=== PATIENT | male | born 1980 | race Caucasian/White ===

== ENCOUNTER 2016-06-10 19:09 | Emergency (ER) | payer OTHER ==
[~2016-06-10] VITALS: Ht 162.6 cm; Wt 90.7 kg
[~2016-06-10 19:09] MED LIST: ALDACTONE25 M1 PO; AMOXICILLIN500 MG PO; BIAXIN500 MG PO; CEPHULAC10 GM/152 PO; CIPRO500 MG PO; CORGARD20 M1 PO; FLAGYL250 MG PO; FLORASTOR 33 MG1 CAP PO; FOLATE1 MG PO; LASIX20 MG PO; MULTI-DAY PLUS1 TA1 PO; NORCO 5/325 MG1 TAB PO; PROTONIX40 MG PO; VITAMIN B1100 M3 PO
[2016-06-10 19:14] VITALS: BP 100/56
--- NOTE | 2016-06-10 19:15 | NUR ---
Patient being evaluated by physician.
--- NOTE | 2016-06-10 19:20 | NUR ---
BIBA TO ER BED 5
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
[2016-06-10] MEDS ORDERED: KETOROLAC 60 MG/2 ML VIAL IM ONE (20:00)
--- NOTE | 2016-06-10 20:10 | NUR ---
PT TO CT VIA GURAMBROSE IN STABLE CONDITION.
--- NOTE | 2016-06-10 20:15 | NUR ---
RETURN FROM CT VIA WHEELCHAIR IN STABLE CONDITION
[2016-06-10] MEDS ORDERED: HYDROcodone/APAP 7.5/325 MG 1 TAB PO ONE (20:45)
--- NOTE | 2016-06-10 21:06 | NUR ---
Patient discharged with v/s stable. Written and verbal after care instructions given and explained. Patient alert, oriented and verbalized understanding of instructions. Ambulatory with steady gait. All questions addressed prior to discharge. ID band removed. Patient advised to follow up with PMD. Rx of NORCO AND IBUPROFEN given. Patient educated on indication of medication including possible reaction and side effects. Opportunity to ask questions provided and answered.
[2016-06-10 21:07] VITALS: BP 102/55
== END 2016-06-10 21:07 | disposition home or self-care (01) ==
LOC: MED 19:09
DX: S42.012A Anterior displaced fracture of sternal end of left clavicle, initial encounter for closed fracture (principal); S70.12XA Contusion of left thigh, initial encounter; K21.9 Gastro-esophageal reflux disease without esophagitis; V13.4XXA Pedal cycle driver injured in collision with car, pick-up truck or van in traffic accident, initial encounter; Y93.89 Activity, other specified; Y92.89 Other specified places as the place of occurrence of the external cause; Y99.8 Other external cause status
CPT/HCPCS: 73030; 96372; 99284; J1885

== ENCOUNTER 2016-06-14 23:39 | Emergency (ER) | payer OTHER ==
[~2016-06-14] VITALS: Ht 162.6 cm; Wt 90.7 kg
[2016-06-14 23:48] VITALS: BP 155/83
--- NOTE | 2016-06-15 01:25 | NUR ---
TO ER BED 8
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
--- NOTE | 2016-06-15 01:45 | NUR ---
Patient being evaluated by physician at bedside.
[2016-06-15] MEDS ORDERED: HYDROcodone/APAP 5/325 MG 1 TAB TAB PO ONE (01:50)
[2016-06-15 03:49] VITALS: BP 155/83
--- NOTE | 2016-06-15 03:50 | NUR ---
Patient discharged with v/s stable. Written and verbal after care instructions given and explained. Patient alert, oriented and verbalized understanding of instructions. Ambulatory with steady gait. All questions addressed prior to discharge. ID band removed. Patient advised to follow up with PMD. Rx of NORCO AND ROBAXIN given. Patient educated on indication of medication including possible reaction and side effects. Opportunity to ask questions provided and answered.
== END 2016-06-15 03:49 | disposition home or self-care (01) ==
LOC: MED 23:39
DX: S42.002A Fracture of unspecified part of left clavicle, initial encounter for closed fracture (principal); S70.12XA Contusion of left thigh, initial encounter; R07.81 Pleurodynia; K74.60 Unspecified cirrhosis of liver; K21.9 Gastro-esophageal reflux disease without esophagitis; V89.2XXA Person injured in unspecified motor-vehicle accident, traffic, initial encounter; Y93.55 Activity, bike riding; Y92.89 Other specified places as the place of occurrence of the external cause; Y99.8 Other external cause status
CPT/HCPCS: 71020; 73552; 93971; 99284; Q0092

== ENCOUNTER 2016-06-18 20:42 | Inpatient (IN) | payer OTHER ==
[~2016-06-18] VITALS: Ht 162.6 cm; Wt 93.0 kg
[2016-06-18 21:37] VITALS: BP 156/79
--- NOTE | 2016-06-18 22:24 | NUR ---
PT TAKEN TO BED 3
--- NOTE | 2016-06-18 22:25 | NUR ---
PATIENT PRESENTS TO ED WITH C.O. RT TO MID ABDOMINAL PAIN AND NAUSEA FOR 2 DAYS. DENIES N/V/D AT THIS TIME. SKIN IS PINK/WARM/DRY; AAOX4 WITH EVEN AND STEADY GAIT; LUNGS CLEAR BL; HR EVEN AND REGULAR; PT DENIES ANY FEVER, CP, SOB, OR COUGH AT THIS TIME; PATIENT STATES PAIN OF 8/10 AT THIS TIME; VSS; PATIENT POSITIONED FOR COMFORT; HOB ELEVATED; BEDRAILS UP X2; BED DOWN. ER MD MADE AWARE OF PT STATUS.
--- NOTE | 2016-06-18 22:59 | NUR ---
PT TAKEN TO XRAY
[2016-06-18] MEDS ORDERED: fentaNYL 0.05 MG/ML VIAL IM ONE (23:05)
--- NOTE | 2016-06-18 23:25 | NUR ---
Patient being evaluated by physician TACHO at bedside.
--- NOTE | 2016-06-18 23:37 | NUR ---
Ultrasound at bedside.
[2016-06-19] MEDS ORDERED: SODIUM CHLORIDE FLUSH 10 ML SYR IVF ONE (00:05)
[2016-06-19] MEDS ORDERED: SODIUM POLYSTYRENE 15 GM/60 ML UDBTL PO ONE (00:05)
[2016-06-19] MEDS ORDERED: DEXTROSE 50% 50 ML SYR IVP ONE (00:05)
[2016-06-19] MEDS ORDERED: FUROSEMIDE 40 MG/4 ML VIAL IVP ONE (00:05)
[2016-06-19] MEDS ORDERED: INSULIN HUMAN REGULAR 100 UNITS/ML 10 ML VIAL IVP ONE (00:05)
[2016-06-19] MEDS ORDERED: LORazepam 2 MG/ML VIAL IVP PRN ×2 (01:50→11:05)
[2016-06-19] MEDS ORDERED: ONDANSETRON 4 MG/2 ML VIAL IVP PRN (01:50)
--- NOTE | 2016-06-19 01:57 | NUR ---
PT TO TRANSFER TO TELE IN ROOM 111B, RECEIVING NURSE IS SHAILESH GRECO. REPORT GIVEN.
--- NOTE | 2016-06-19 02:05 | NUR ---
Pt transferred to Tele via . VSS.
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
[2016-06-19 02:29] VITALS: BP 124/69
--- NOTE | 2016-06-19 03:00 | NUR ---
PT. WENT RESTROOM TO HAVE A BOWEL MOVEMENT. BILATERAL SEQUENTIALS BACK IN PLACE WHEN PT. DONE. EXPLAINED REASON FOR IT. "OK" TELEMETRY MONITORING.
[2016-06-19 04:23] VITALS: BP 118/57
--- NOTE | 2016-06-19 04:48 | NUR ---
SLEEPING. ABLE TO GO RESTROOM BY HIMSELF. NO COMPLAINTS DONE. TELEMETRY MONITORING.
[2016-06-19] MEDS: MORPHINE SULFATE 2 MG/ML SYR IVP PRN ×4 (05:19→20:48)
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
--- NOTE | 2016-06-19 07:18 | NUR ---
ENDORSED TO THE NEXT RN FOR CONTINUITY OF CARE. AWAKE AND ALERT. NO COMPLAINTS DONE.
--- NOTE | 2016-06-19 07:19 | NUR ---
RECEIVED REPORT FROM CAFETERIA MANAGER RN. PT IS RESTING WITH EYES CLOSED, A/O X 4, AMBULATORY. R HAND 22G SL IV. NO S/S OF ACUTE CARDIAC/RESPIRATORY DISTRESS OR DISCOMFORT. HEMATOMA TO L LEG AND TORSO. LBM ON 06/19/16. SAFETY MEASURES IN PLACE, CALL LIGHT WITHIN REACH. WILL CONTINUE PLAN OF CARE AND CONTINUE TO MONITOR.
[2016-06-19 07:44] VITALS: BP 110/57
--- NOTE | 2016-06-19 08:30 | NUR ---
PATIENT HAS BEEN SCREENED AND CATEGORIZED HIGH NUTRITION RISK. PATIENT WILL BE SEEN WITHIN 1-2 DAYS OF ADMISSION. 06/19/16-06/20/[address]
--- NOTE | 2016-06-19 09:16 | NUR ---
PT SLEEPING. NO S/S OF ACUTE DISTRESS OR DISCOMFORT. CALL LIGHT WITHIN REACH. WILL CONTINUE TO MONITOR.
--- NOTE | 2016-06-19 09:25 | NUR ---
FAXED INITIAL REVIEW TO [facility] [phone] PHONE [phone]
[2016-06-19] MEDS ORDERED: FUROSEMIDE 40 MG/4 ML VIAL IVP SCH ×2 (11:15→11:30)
[2016-06-19 12:00] VITALS: BP 130/69
--- NOTE | 2016-06-19 13:04 | NUR ---
OLD IV RIGHT HAND 22G SL NOT PATENT, IV REMOVED AND INTACT. NEW IV TO LAC 22G SL, INTACT AND PATENT. ADMINISTERED PAIN MEDICATION, PT TOLERATED WELL AND STATES REDUCED PAIN. FAMILY AT BEDSIDE. PT AWAKE, EATING LUNCH. NO S/S OF ACUTE DISTRESS OR DISCOMFORT. CALL LIGHT WITHIN REACH. WILL CONTINUE TO MONITOR.
--- NOTE | 2016-06-19 15:10 | NUR ---
PT IS RESTING WITH EYES CLOSED. NO S/S OF ACUTE DISTRESS OR DISCOMFORT. CALL LIGHT WITHIN REACH. WILL CONTINUE TO MONITOR.
[2016-06-19 16:00] VITALS: BP 114/76
[2016-06-19] MEDS: FUROSEMIDE 40 MG/4 ML VIAL IVP SCH (16:13)
--- NOTE | 2016-06-19 17:00 | NUR ---
PT IS SLEEPING. NO S/S OF ACUTE DISTRESS OR DISCOMFORT. CALL LIGHT WITHIN REACH. WILL CONTINUE TO MONITOR.
--- NOTE | 2016-06-19 19:17 | NUR ---
ENDORSED TO SOLAR MAINTENANCE TECHNICIAN RN. PT IS RESTING WITH EYES CLOSED. NO S/S OF ACUTE DISTRESS OR DISCOMFORT. PT IS STABLE. CALL LIGHT WITHIN REACH.
--- NOTE | 2016-06-19 19:25 | NUR ---
RECEIVED REPORT FROM DAY NURSEMIKEY. PATIENT RESTING IN BED, WATCHING TELEVISION. NO RESPIRATORY DISTRESS, SOB, OR DISCOMFORT. INITIAL ASSESSMENT AND BODY CHECK DONE. PATIENT IS AOX4, SKIN IS INTACT, IV ACCESS TO LEFT AC 22G, PATENT. HEMATOMAS NOTED TO LEFT LEG, BACK, AND UPPER CHEST. DISCUSSED PLAN OF CARE, MEDICATION REGIMENT, AND PAIN MANAGEMENT WITH PATIENT. PATIENT VERBALIZED UNDERSTANDING. PLACED PATIENT ON SAFETY PRECAUTIONS. CALL LIGHT LEFT WITHIN REACH, WILL CONTINUE TO MONITOR.
[2016-06-19 20:00] VITALS: BP 113/65
[2016-06-19] MEDS: SACCHAROMYCES 250 MG CAP PO SCH (20:48)
[2016-06-19] MEDS: LACTULOSE 20 GM/30 ML UDC PO SCH (20:48)
--- NOTE | 2016-06-19 22:08 | NUR ---
PATIENT RESTING IN BED, WATCHING TELEVISION. NO RESPIRATORY DISTRESS, SOB, OR DISCOMFORT. CALL LIGHT LEFT WITHIN REACH, WILL CONTINUE TO MONITOR.
[2016-06-20] VITALS: BP 103/63
--- NOTE | 2016-06-20 01:01 | NUR ---
PATIENT USING RESTROOM AT THIS TIME. STATES BEING OKAY. WILL CONTINUE TO MONITOR.
[2016-06-20] MEDS: MORPHINE SULFATE 2 MG/ML SYR IVP PRN ×3 (03:03→13:25)
--- NOTE | 2016-06-20 03:08 | NUR ---
PATIENT ASLEEP. NO RESPIRATORY DISTRESS, SOB, OR DISCOMFORT. CALL LIGHT LEFT WITHIN REACH, WILL CONTINUE TO MONITOR.
[2016-06-20 04:00] VITALS: BP 112/67
--- NOTE | 2016-06-20 06:07 | NUR ---
PATIENT SLEEPING. NO RESPIRATORY DISTRESS, SOB, OR DISCOMFORT. CALL LIGHT LEFT WITHIN REACH, WILL CONTINUE TO MONITOR.
--- NOTE | 2016-06-20 07:05 | NUR ---
REPORT GIVEN TO DAY NURSE, MIKEY. PATIENT RESTING IN BED, STABLE. NO RESPIRATORY DISTRESS, SOB, OR DISCOMFORT. ALL NEEDS ATTENDED TO DURING SHIFT, CALL LIGHT LEFT WITHIN REACH.
--- NOTE | 2016-06-20 07:06 | NUR ---
RECEIVED REPORT FROM POWERTRAIN DESIGN ENGINEER RN. PT IS AWAKE, A/O X 4, AMBULATORY. LAC IV INTACT AND PATENT. NO S/S OF ACUTE DISTRESS OR DISCOMFORT. LBM 06/19/16. SAFETY MEASURES IN PLACE, CALL LIGHT WITHIN REACH. WILL CONTINUE PLAN OF CARE, WILL CONTINUE TO MONITOR.
[2016-06-20 08:00] VITALS: BP 129/71
[2016-06-20] MEDS: LACTULOSE 20 GM/30 ML UDC PO SCH (08:54)
[2016-06-20] MEDS: FUROSEMIDE 40 MG/4 ML VIAL IVP SCH (08:54)
[2016-06-20] MEDS: SACCHAROMYCES 250 MG CAP PO SCH (08:54)
[2016-06-20] MEDS ORDERED: THIAMINE 100 MG TAB PO SCH (09:00)
[2016-06-20] MEDS ORDERED: NADOLOL 20 MG TAB PO SCH (09:00)
[2016-06-20] MEDS ORDERED: FOLIC ACID 1 MG TAB PO SCH (09:00)
--- NOTE | 2016-06-20 10:19 | NUR ---
PT RESTING WITH EYES CLOSED. NO S/S OF ACUTE DISTRESS OR DISCOMFORT. CALL LIGHT WITHIN REACH. WILL CONTINUE TO MONITOR.
--- NOTE | 2016-06-20 11:16 | NUR ---
06/20/16 RD INITIAL ASSESSMENT COMPLETED PLEASE REFER TO NUTRITION ASSESSMENT UNDER CARE ACTIVITY FOR ESTIMATED NUTRITIONAL NEEDS. RD RECOMMENDATIONS: 1. CONTINUE REGULAR DIET TOLERATED PER MD --PT MEETING >100% OF ESTIMATED KCAL AND PROTEIN NEEDS 3. RD WILL F/U 5-7 DAYS; LOW RISK. VEDA MEJIA RD
[2016-06-20 12:00] VITALS: BP 114/62
--- NOTE | 2016-06-20 12:42 | NUR ---
CM NOTE CONCURRENT REVIEW SENT TO [facility] FAX# [phone] PH# [phone] [facility] [id number]
--- NOTE | 2016-06-20 14:30 | NUR ---
DISCHARGE INSTRUCTIONS PROVIDED, PT VERBALIZED UNDERSTANDING. PT SIGNED DISCHARGE PAPERWORK, PROVIDED A COPY. REMOVED ARM BANDS, REMOVED TELE MONITOR, IV REMOVED AND INTACT. PT HAS NO S/S OF ACUTE DISTRESS OR DISCOMFORT. PT IN STABLE CONDITION. ESCORT PT TO FRONT LOBBY TO BE PICKED UP BY FATHER.
== END 2016-06-20 14:30 | disposition home or self-care (01) | DRG 280 ==
LOC: MED 20:42 → MTU 06-19 01:45
PROVIDERS: ADMIT Hospitalist; ATTEND Hospitalist
DX: K70.31 Alcoholic cirrhosis of liver with ascites (principal); E87.1 Hypo-osmolality and hyponatremia; I85.00 Esophageal varices without bleeding; E87.5 Hyperkalemia; I10 Essential (primary) hypertension; F10.21 Alcohol dependence, in remission; K21.9 Gastro-esophageal reflux disease without esophagitis; Z79.899 Other long term (current) drug therapy

== ENCOUNTER 2016-06-25 15:25 | Emergency (ER) | payer OTHER ==
[~2016-06-25] VITALS: Ht 162.6 cm; Wt 93.0 kg
[2016-06-25 15:46] VITALS: BP 125/99
--- NOTE | 2016-06-25 17:17 | NUR ---
PT TO BED 1 AT THIS TIME
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
[2016-06-25] MEDS ORDERED: ALUMINUM HYD/MAG/SIMETHICONE 30 ML, BELLADONNA/PHENOBARBITAL 10 ML, LIDOCAINE VISCOUS 2... PO ONE (17:25)
--- NOTE | 2016-06-25 17:36 | NUR ---
LAB AT BEDSIDE
--- NOTE | 2016-06-25 18:03 | NUR ---
PT TAKEN TO XRAY VIA W/C ACCOMPANIED BY [employer] AT THIS TIME.
[2016-06-25] MEDS ORDERED: FUROSEMIDE 40 MG TAB PO ONE (18:30)
[2016-06-25] MEDS ORDERED: SODIUM POLYSTYRENE 15 GM/60 ML UDBTL PO ONE (18:30)
[2016-06-25 18:59] VITALS: BP 128/71
--- NOTE | 2016-06-25 18:59 | NUR ---
Patient discharged with v/s stable. Written and verbal after care instructions given and explained. Patient alert, oriented and verbalized understanding of instructions. Ambulatory with steady gait. All questions addressed prior to discharge. ID band removed. Patient advised to follow up with PMD. Rx of LASIX 40MG & LACTULOSE 10G/15ML given. Patient educated on indication of medication including possible reaction and side effects. Opportunity to ask questions provided and answered.
== END 2016-06-25 18:59 | disposition home or self-care (01) ==
LOC: MED 15:25
DX: K74.60 Unspecified cirrhosis of liver (principal); E87.5 Hyperkalemia; E87.1 Hypo-osmolality and hyponatremia; R74.0 Nonspecific elevation of levels of transaminase and lactic acid dehydrogenase [LDH]; K21.9 Gastro-esophageal reflux disease without esophagitis; I10 Essential (primary) hypertension

== ENCOUNTER 2016-06-27 07:47 | Emergency (ER) | payer OTHER ==
[~2016-06-27] VITALS: Ht 162.6 cm; Wt 93.0 kg
[2016-06-27 07:57] VITALS: BP 127/65
--- NOTE | 2016-06-27 08:05 | NUR ---
PT AMBULATED TO BED 3 AT THIS TIME.
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
[2016-06-27] MEDS ORDERED: NACL 0.9% 500 ML IV ONE (08:18)
[2016-06-27] MEDS ORDERED: DICYCLOMINE 20 MG/2 ML VIAL IM ONE (08:20)
--- NOTE | 2016-06-27 08:35 | NUR ---
WITH LAB AT BEDSIDE.
--- NOTE | 2016-06-27 08:45 | NUR ---
PT AMB TO RESTROOM.
--- NOTE | 2016-06-27 08:53 | NUR ---
PT ON MONITOR. HR 95. ER MADE AWARE. ORDER TO STOP IVF.
[2016-06-27] MEDS ORDERED: ALUMINUM HYD/MAG/SIMETHICONE 30 ML, BELLADONNA/PHENOBARBITAL 10 ML, LIDOCAINE VISCOUS 2... PO ONE (09:15)
[2016-06-27 09:41] VITALS: BP 105/65
--- NOTE | 2016-06-27 09:41 | NUR ---
Patient discharged with v/s stable. Written and verbal after care instructions given and explained. Patient alert, oriented and verbalized understanding of instructions. Ambulatory with steady gait. All questions addressed prior to discharge. ID band removed. Patient advised to follow up with PMD. Rx of CIPROFLOXACIN, BENTYL AND FLAGYL given. Patient educated on indication of medication including possible reaction and side effects. Opportunity to ask questions provided and answered.
== END 2016-06-27 09:41 | disposition home or self-care (01) ==
LOC: MED 07:47
DX: K74.60 Unspecified cirrhosis of liver (principal); R19.7 Diarrhea, unspecified; R60.0 Localized edema; I10 Essential (primary) hypertension; K21.9 Gastro-esophageal reflux disease without esophagitis; Z79.899 Other long term (current) drug therapy
CPT/HCPCS: 36415; 80053; 83690; 85025; 96374; 99284; J0500; J7030

== ENCOUNTER 2016-06-29 21:37 | Inpatient (IN) | payer OTHER ==
[~2016-06-29] VITALS: Ht 162.6 cm; Wt 101.2 kg
[2016-06-29 21:48] VITALS: BP 136/71
[2016-06-29] MEDS ORDERED: NACL 0.9% 1,000 ML IV ONE (23:45)
--- NOTE | 2016-06-30 | NUR ---
PATIENT TO BED 8.
--- NOTE | 2016-06-30 00:05 | NUR ---
PT IS A 35/M BIB MOTHER TO ED WITH C/O ABD PAIN X2DAYS WITH N/V/D, HEADACHE AND BONE PAIN. HX CIRRHOSIS AND HERNIA. SKIN IS /WARM/DRY; AAOX4 WITH EVEN AND STEADY GAIT; LUNGS CLEAR BL; HR EVEN AND REGULAR; PT DENIES ANY FEVER, OR COUGH AT THIS TIME; PATIENT STATES PAIN OF 10/10 AT THIS TIME; VSS; PATIENT POSITIONED FOR COMFORT; HOB ELEVATED; BEDRAILS UP X2; BED DOWN. ER MD MADE AWARE OF PT STATUS.
--- NOTE | 2016-06-30 00:10 | NUR ---
Patient being evaluated by physician at bedside.
[2016-06-30] MEDS ORDERED: MORPHINE SULFATE 4 MG/ML SYR IVP ONE (00:20)
[2016-06-30] MEDS: DEXT 5% /NACL 0.9% 1,000 ML IV SCH ×3 (00:40→20:19)
[2016-06-30] MEDS ORDERED: ONDANSETRON 4 MG/2 ML VIAL IVP PRN (00:40)
--- NOTE | 2016-06-30 01:25 | NUR ---
Patient will be admitted to care of . Admited to TELEMETRY. Will go to room 106B. Belongings list completed. Report to FANNIE GUZMAN.
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
[2016-06-30 01:29] VITALS: BP 118/66
[2016-06-30 04:00] VITALS: BP 120/67
--- NOTE | 2016-06-30 04:05 | NUR ---
PT VSS. NO DISTRESS NOTED. CALL LIGHT WITHIN REACH.
[2016-06-30] MEDS: MORPHINE SULFATE 2 MG/ML SYR IVP PRN (05:38)
--- NOTE | 2016-06-30 05:38 | NUR ---
PROVIDED PT W/ PAIN MEDICATION SEE eMAR. PT REMAINS STABLE. NO ACUTE DISTRESS. CALL LIGHT WITHIN EASY REACH.
--- NOTE | 2016-06-30 07:26 | NUR ---
ENDORSED PT TO EMILIA RN IN STABLE CONDITION AT BEDSIDE FOR CONTINUITY OF CARE.
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
[2016-06-30 08:00] VITALS: BP 115/63
[2016-06-30] MEDS: THIAMINE 100 MG TAB PO SCH (08:33)
[2016-06-30] MEDS: LACTULOSE 20 GM/30 ML UDC PO SCH ×2 (08:33→20:22)
[2016-06-30] MEDS: MULTIVITAMIN 1 TAB PO SCH (08:33)
[2016-06-30] MEDS: FOLIC ACID 1 MG TAB PO SCH (08:34)
--- NOTE | 2016-06-30 08:41 | NUR ---
MORNING DUE MEDICATIONS AND TEACHING GIVEN, PATIENT TOLERATED WELL. NO SIGN OF DISTRESS NOTED. PATIENT DENIED ANY PAIN OR DISCOMFORT. ALL NEEDS ARE MET. CALL LIGHT WITHIN REACH. WILL CONTINUE TO MONITOR.
[2016-06-30] MEDS: NADOLOL 20 MG TAB PO SCH (08:44)
[2016-06-30 11:47] VITALS: BP 100/60
--- NOTE | 2016-06-30 12:01 | NUR ---
PATIENT RESTING WELL IN BED. NO SIGN OF DISTRESS NOTED. DENIED ANY N/V/D. DENIED ANY PAIN OR DISCOMFORT AT THIS TIME. ALL NEEDS ARE MET. CALL LIGHT WITHIN REACH. WILL CONTINUE TO MONITOR.
--- NOTE | 2016-06-30 14:53 | NUR ---
REACH BACK TO DR NERI WOOD RESULT IMPRESSION, RECEIVED TELEPHONE ORDER FOR NG TUBE LOW INTERMITTENT SUCTION AND DR BRITTON CONSULT FOR PATIENT. WILL FOLLOW THROUGH MD ORDERS.
--- NOTE | 2016-06-30 15:08 | NUR ---
CALLED DR BRITTON AND LEFT MESSAGE REGARDING PATIENT'S CONSULT FOR PARTIAL SMALL BOWEL OBSTRUCTION.
[2016-06-30 15:34] VITALS: BP 107/61
--- NOTE | 2016-06-30 15:42 | NUR ---
NG TUBE INSERTED TP LEFT NARES, PATIENT TOLERATED WELL. NOTED CLEAR LIGHT YELLOW FLUID COMING OUT FROM NG TUBE. HEAD OF BED ELEVATED, INSTRUCTED PATIENT TO REMAIN NPO, PATIENT VERBALIZED UNDERSTANDING. CALL LIGHT WITHIN REACH. WILL CONTINUE TO MONITOR. AWAITING FOR CHEST XRAY TO CONFIRM PLACEMENT.
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
--- NOTE | 2016-06-30 18:00 | NUR ---
ASSISTED PATIENT TO BATHROOM AND BACK TO BED SAFELY, PATIENT HAS 1 LIQUID BOWEL MOVEMENT. RESUMED LOW INTERMITTENT SUCTION FOR NG TUBE. PATIENT TOLERATED WELL. WILL CONTINUE TO MONITOR.
--- NOTE | 2016-06-30 19:08 | NUR ---
ENDORSED PATIENT CURRENT PLAN OF CARE TO NIGHT NURSE KAYA WADE. PATIENT RESTING WELL IN BED. NO SIGN OF DISTRESS NOTED.
--- NOTE | 2016-06-30 19:10 | NUR ---
PT IS CURRENTLY AWAKE ALERT ORIENTED RESTING IN BED PT DENIES PAIN AND DISCOMFORT HAS NGTUBE IN PLACE CONNECTED TO SUCTION.IV SITE IS OCCLUDED WILL RESTART A NEW IV.PT CONTINUES TO WEAR THE SCD'S TO BOTH LOWER EXTREMITY FOR DVT PROPHALAXIS. CALL LIGHT WITHIN REACH WILL CONTINUE TO MONITOR.
[2016-06-30 20:00] VITALS: BP 92/55
--- NOTE | 2016-06-30 20:00 | NUR ---
Patient's Plan of Care was discussed and reviewed with CUT PRESSMAN: SHERI Herring
--- NOTE | 2016-06-30 22:10 | NUR ---
PT IS CURRENTLY AWAKE RESTING IN BED TALKING ON THE PHONE,IVF TO RT FA G#24 CURRENTLY INFUSING WELL WILL CONTINUE TO MONITOR.PT ASSISTED TO THE BATHROOM NEEDED.CALL LIGHT WITHIN REACH.
[2016-07-01] VITALS: BP 112/53
--- NOTE | 2016-07-01 00:10 | NUR ---
PT IS CURRENTLY RESTING IN BED SLEEPING NGT IN PLACE CONNECTED TO SUCTION,PT HAS NO COMPLAINS OF PAIN AT THIS TIME.IVF INFUSING WELL,SCD'S IN PLACE TO BOTH LOWER EXTREMITIES.PT IS ABLE TO MAKE NEEDS KNOWN USES THE CALL LIGHT.WILL CONTINUE TO MONITOR.
--- NOTE | 2016-07-01 02:50 | NUR ---
PT IS CURRENTLY AWAKE ON AND OFF ASSISTED TO THE BATHROOM AND BACK TO BED NEEDS MET WILL CONTINUE TO MONITOR.
[2016-07-01 04:30] VITALS: BP 109/57
--- NOTE | 2016-07-01 04:30 | NUR ---
PT IS CURRENTLY RESTING IN BED CONTINUES TO HAVE NGTUBE IN PLACE TO SUCTION,PT ASSISTED TO THE BATHROOM AND BACK TO BED.IVF INFUSING WELL IV SITE PATENT.WILL CONTINUE TO MONITOR THE PATIENT.CALL LIGHT WITHIN REACH.
[2016-07-01] MEDS: MORPHINE SULFATE 2 MG/ML SYR IVP PRN ×2 (05:05→14:20)
--- NOTE | 2016-07-01 06:51 | NUR ---
PT IS SLEEPING ON AND OFF CONTINUE TO HAVE NGT TO SUCTION AND THERE IS ABOUT 510ML OF DRAINAGE NOTED INSIDE THE SUCTION CONTAINER.PT DENIES PAIN, NO COMPLAINS OF N/V AT THIS TIME AND CONTINUES TO HAVE THE SCD'S TO BLE IN PLACE.PT HAS CALL LIGHT AND IS ABLE TO MAKE NEEDS KNOWN.
--- NOTE | 2016-07-01 07:24 | NUR ---
PT STABLE REPORT ENDORSED TO KAYA DODSON AT BEDSIDE.
--- NOTE | 2016-07-01 07:24 | NUR ---
ASSUMED CONTINUITY OF CARE. NO SIGNS AND SYMPTOMS OF ACUTE DISTRESS NOTED. INITIAL ASSESSMENT DONE. HOB ELEVATED. KEEP COMFORTABLE ON BED. EXPLAINED DIAGNOSIS, PLAN OF CARE, PAIN MANAGEMENT TEACHING, USE OF CALL LIGHT/BED/TV/BATHROOM. VERBALIZED UNDERSTANDING. CALL LIGHT WITHIN REACH.
[2016-07-01 08:00] VITALS: BP 103/52
--- NOTE | 2016-07-01 08:00 | NUR ---
Patient's Plan of Care was discussed and reviewed with SOLAR PANEL TECHNICIAN: MEGAN DODSON
--- NOTE | 2016-07-01 08:50 | NUR ---
WOUND CARE EVALUATION NOTES: REASON FOR EVALUATION: DRY WOUND LEFT THIGH COMPLETE SKIN ASSESSMENT DONE ON THIS 35 Y/O MALE PATIENT FROM HOME TO [facility], WITH INITIAL DIAGNOSIS OF SMALL BOWEL OBSTRUCTION. PAST MEDICAL HISTORY INCLUDE LIVER CIRRHOSIS, PORTAL HYPERTENSION, UMBILICAL HERNIA AND ALCOHOL ABUSE. ALL ABOVE INFORMATION WAS OBTAINED FROM THE ADMISSION. LABS INCLUDE WBC 5.0, H/H 8.4/25.0, GLUCOSE 67 AND ALBUMIN 1.5. CURRENT MEDS INCLUDE THIAMINE, MULTIVITAMINS/ASCORBIC ACID AND MORPHINE. PATIENT IS ALERT AND ORIENTED TO PERSON, PLACE, DATE AND TIME. ABLE TO MAKE HIS NEEDS KNOWN. ABLE TO FOLLOW SIMPLE COMMANDS. SKIN WARM TO TOUCH WNL, TOENAILS ARE SLIGHTLY THICKENED, NO EDEMA, WITH HAIR GROWTH AND +3 BILATERAL PEDAL PULSES. URINE AND BOWEL CONTINENT, ABLE TO AMBULATE TO THE RESTROOM CLAIMED. ABLE TO TURN SELF WITHOUT ASSISTANCE. INITIAL PLAN OF CARE AND PRESSURE PREVENTIVE MEASURES DISCUSSED, ABLE TO VERBALIZE UNDERSTANDING. INTEGUMENTARY: LEFT THIGH - ABRASION - 100% BROWN SCAB. PW DRY AND SOME SKIN ARE PEELING OFF RECOMMENDATIONS: -PAINT LEFT THIGH WITH SKIN PREP WIPES BIDWC AND LEAVE OPEN TO AIR -TURN AND REPOSITION PATIENT Q2H -ASSESS AND MONITOR SKIN CONDITION DURING POSITION CHANGE, PLEASE PAY PARTICULAR ATTENTION TO SACRALCOCCYX, ELBOWS AND HEELS -OFFLOAD BILATERAL HEELS BY PLACING PILLOWS UNDER CALVES AT ALL TIMES, UNLESS OTHERWISE CONTRAINDICATED. -KEEP SKIN CLEAN AND DRY AT ALL TIMES. RECOMMENDATIONS DISCUSSED WITH PRIMARY RN. NO FOLLOW UP NEEDED AT THIS TIME. PLEASE CONTACT [facility] FOR ANY CONCERNS, QUESTIONS AND CHANGES IN WOUND CONDITION.
[2016-07-01] MEDS: NADOLOL 20 MG TAB PO SCH (09:00)
[2016-07-01] MEDS: THIAMINE 100 MG TAB PO SCH (09:08)
[2016-07-01] MEDS: LACTULOSE 20 GM/30 ML UDC PO SCH ×2 (09:08→21:24)
[2016-07-01] MEDS: FOLIC ACID 1 MG TAB PO SCH (09:09)
[2016-07-01] MEDS: MULTIVITAMIN 1 TAB PO SCH (09:09)
--- NOTE | 2016-07-01 09:21 | NUR ---
PATIENT HAS BEEN SCREENED AND CATEGORIZED HIGH NUTRITION RISK. PATIENT WILL BE SEEN WITHIN 1-2 DAYS OF ADMISSION. 06/30/16-07/01/[address]
[2016-07-01 12:00] VITALS: BP 116/61
--- NOTE | 2016-07-01 12:23 | NUR ---
FAXED INITIAL REVIEW TO [facility] [phone] PHONE October FAXED INITIAL REVIEW TO [facility] [phone] PHONE [phone]
--- NOTE | 2016-07-01 13:30 | NUR ---
DR. BRITTON CAME, SEEN PT., AND REVIEWED PT. CHART.
[2016-07-01] MEDS: DEXT 5% /NACL 0.9% 1,000 ML IV SCH (14:10)
--- NOTE | 2016-07-01 14:40 | NUR ---
07/01/16 RD INITIAL ASSESSMENT COMPLETED PLEASE REFER TO NUTRITION ASSESSMENT UNDER CARE ACTIVITY FOR ESTIMATED NUTRITIONAL NEEDS. RD RECOMMENDATIONS: 1. CONTINUE NPO MEDICALLY APPROPRIATE 2. WHEN MEDICALLY NECESSARY CONSIDER ADVANCE DIET TOLERATED TO REGULAR, MECHANICAL SOFT 3. RD WILL F/U 3-5 DAYS; MODERATE RISK. VEDA MEJIA RD
[2016-07-01 16:00] VITALS: BP 113/64
--- NOTE | 2016-07-01 16:00 | NUR ---
VITALS SIGNS STABLE. NO C/O PAIN. WILL MONITOR.
--- NOTE | 2016-07-01 19:17 | NUR ---
ENDORSED TO SHAILESH THOMPSON. IVF INFUSING WELL. IN STABLE CONDITION.
--- NOTE | 2016-07-01 19:25 | NUR ---
RECEIVED FROM AM RN IN BED AWAKE AND WITH FAMILY MEMBERS VISITING. ORIENTED X 4. ROM X 4. CLEAR SPEECH. CARE PLANS FOR THE NIGHT DISCUSSED WITH HIM. CALL LIGHT WITH IN REACH. DX. SBO. SEEN BY SURGEON PER AM NURSE. AFEBRILE. IVF SITE TO RFA #24 INTACT AND WITH GOOD BLOOD RETURN.
[2016-07-01 20:00] VITALS: BP 103/60
--- NOTE | 2016-07-01 22:00 | NUR ---
PT. STILL AWAKE AT THIS TIME. ENCOURAGED TO GO TRY HAVE BM AND TO CALL FOR ANY HELP HE MAY NEED. A/O X 4. "OK" NGT OUTPUT STILL COFFEE GROUND. PER CHARGE NURSE AND AM RN MD AWARE OF IT. CALL LIGHT WITH IN REACH.
--- NOTE | 2016-07-01 23:48 | NUR ---
PT. STATED THAT HE HASN'T GONE BM YET. BED SIDE COMMODE IN PLACE. PT. ABLE TO TURN SELF AND STAND UP. WITH NGT TO SUCTION AND WITH IVF. ABLE TO USE CALL LIGHT FOR HELP AND ABLE TO VERBALIZE WELL.
[2016-07-02] VITALS: BP 110/62
--- NOTE | 2016-07-02 01:40 | NUR ---
SLEEPING AT THIS TIME. PT. ABLE TO URINATE. VS WITH IN NORMAL LIMITS. VERBALIZES WELL. USES CALL LIGHT FOR ANY HELP HE NEEDS. NO NOTED RESTLESSNESS.
[2016-07-02] MEDS: DEXT 5% /NACL 0.9% 1,000 ML IV SCH ×3 (02:52→20:46)
--- NOTE | 2016-07-02 03:40 | NUR ---
SLEEPING AT THIS TIME. NGT IN INTERMITTENT SUCTION. WITH SAME COFFEE GROUND OUTPUT. ABLE TO USE CALL LIGHT FOR HELP. ORIENTED X 4. ROM X 4. CLEAR SPEECH.
[2016-07-02 04:00] VITALS: BP 121/67
[2016-07-02] MEDS: MORPHINE SULFATE 2 MG/ML SYR IVP PRN ×3 (04:52→21:12)
--- NOTE | 2016-07-02 07:00 | NUR ---
Patient's Plan of Care was discussed and reviewed with PRINTER ASSISTANT: RYLEE
--- NOTE | 2016-07-02 07:21 | NUR ---
ASSUMED CONTINUITY OF CARE. NO SIGNS AND SYMPTOMS OF ACUTE DISTRESS NOTED. INITIAL ASSESSMENT DONE. KEEP COMFORTABLE ON BED. EXPLAINED DIAGNOSIS, PLAN OF CARE, PAIN MANAGEMENT TEACHING, USE OF CALL LIGHT/BED/TV/BATHROOM. VERBALIZED UNDERSTANDING. CALL LIGHT WITHIN REACH.
--- NOTE | 2016-07-02 07:28 | NUR ---
ENDORSED TO THE NEXT NURSE FOR CONTINUITY OF CARE. AWAKE AND ALERT. ABLE TO STAND UP TO RESTROOM . NO COMPLAINTS DONE. ABLE TO VERBALIZE WELL. USES CALL LIGHT FOR HELP.
[2016-07-02 08:00] VITALS: BP 121/69
[2016-07-02] MEDS: LACTULOSE 20 GM/30 ML UDC PO SCH ×2 (09:06→20:45)
[2016-07-02] MEDS: FOLIC ACID 1 MG TAB PO SCH (09:06)
[2016-07-02] MEDS: MULTIVITAMIN 1 TAB PO SCH (09:07)
[2016-07-02] MEDS: THIAMINE 100 MG TAB PO SCH (09:07)
[2016-07-02] MEDS: NADOLOL 20 MG TAB PO SCH (09:07)
--- NOTE | 2016-07-02 10:12 | NUR ---
FAXED CONCURRENT REVIE TO [facility] [phone] PHONE OCTOBER [phone] FAXED CONCURRENT REVIEW TO [facility] [phone] PHONE [phone]
[2016-07-02 11:20] VITALS: BP 125/76
--- NOTE | 2016-07-02 11:20 | NUR ---
WENT TO RADIOLOGY VIA WHEELCHAIR FOR SMALL BOWEL FOLLOW THROUGH. IN STABLE CONDITION.
--- NOTE | 2016-07-02 12:10 | NUR ---
WENT BACK FROM RADIOLOGY VIA WHEELCHAIR. N/O PAIN. NO SOB, NOTED. NO C/O NAUSEA. KEEP COMFORTABLE ON BED.
--- NOTE | 2016-07-02 19:05 | NUR ---
RECEIVED REPORT FROM FANNIE MCKEE AT BEDSIDE. INITIAL ASSESSMENT COMPLETED. PT AAOX4. PT AMBULATES, PT HAS IV TO LEFT WRIST G 24; ASYMPTOMATIC, PATENT AND INTACT INFUSING FLUIDS WELL. PT HAS ABRASION TO LEFT LOWER EXTREMITY. PT HAS ABDOMINAL DISTENTION. ORIENTED PT TO ROOM AND SURROUNDINGS AND USE OF CALL LIGHT. MOTHER AT BEDSIDE. EXPLAINED PLAN OF CARE TO PT AND SHE VERBALIZES UNDERSTANDING. SAFETY MEASURES IN PLACE, CALL LIGHT WITHIN REACH.
--- NOTE | 2016-07-02 20:21 | NUR ---
SCDS AT BEDSIDE, BUT PT REFUSES TO USE THEM. HE STATED THAT HE DOES NOT NEED THEM. CALL LIGHT WITHIN REACH.
--- NOTE | 2016-07-02 20:50 | NUR ---
PT TOLERATED 2100 MED WELL, CALL LIGHT WITHIN REACH.
--- NOTE | 2016-07-02 21:13 | NUR ---
PT COMPLAINING OF PAIN 12/19. VS WITHIN NORMAL RANGE. WILL MEDICATE ORDERED.
--- NOTE | 2016-07-02 23:45 | NUR ---
PT USING HIS CELL PHONE, PT STABLE WILL CONTINUE TO MONITOR PT.
[2016-07-03] VITALS: BP 109/62
--- NOTE | 2016-07-03 02:54 | NUR ---
PT COMPLAINING OF PAIN ON LEFT SHOULDER 11/18. VS STABLE, WILL MEDICATE ORDERED.
[2016-07-03] MEDS: MORPHINE SULFATE 2 MG/ML SYR IVP PRN ×2 (02:57→13:51)
--- NOTE | 2016-07-03 03:30 | NUR ---
PT COMPLAINING OF IV SITE HURTING, IV SITE SWOLLEN. IV DISCONTINUED, WITH TIP INTACT. PT TOLERATED IT WELL. NEW IV STARTED ON LEFT HAND 22 G, INFUSING FLUIDS WELL. CALL LIGHT WITHIN REACH.
--- NOTE | 2016-07-03 05:35 | NUR ---
PT SLEEPING, NO SIGNS OF DISTRESS NOTED. WILL CONTINUE TO MONITOR PT.
--- NOTE | 2016-07-03 07:54 | NUR ---
ENDORSED PT IN STABLE CONDITION TO FANNIE VERA FOR CONTINUITY OF CARE.
--- NOTE | 2016-07-03 07:55 | NUR ---
RECEIVED REPORT FROM FANNIE CARRANZA. PT IS AAOX4, PT ON ROOM AIR WITH NO S/S OF DISTRESS NOTED. IV TO RIGHT WRIST #24, PATENT AND INTACT. NO N/V OR PAIN INDICATED. DRESSING NOTED TO LEFT THIGH, ABRASION. ALL SAFETY PRECAUTIONS IN PLACE, SIDE RAILSX2, BED IN LOW POSITION, AND CALL LIGHT WITHIN REACH. WILL CONTINUE TO MONITOR.
[2016-07-03 08:00] VITALS: BP 100/60
[2016-07-03] MEDS: NADOLOL 20 MG TAB PO SCH (09:00)
[2016-07-03] MEDS ORDERED: LASIX40 MG PO (09:00)
[2016-07-03] MEDS: MULTIVITAMIN 1 TAB PO SCH (09:19)
[2016-07-03] MEDS: THIAMINE 100 MG TAB PO SCH (09:19)
[2016-07-03] MEDS: LACTULOSE 20 GM/30 ML UDC PO SCH (09:19)
[2016-07-03] MEDS: FOLIC ACID 1 MG TAB PO SCH (09:19)
--- NOTE | 2016-07-03 09:24 | NUR ---
HELD NADOLOL, BP 93/52, HR 84. WILL CONTINUE TO MONITOR.
[2016-07-03] MEDS: DEXT 5% /NACL 0.9% 1,000 ML IV SCH (09:28)
--- NOTE | 2016-07-03 09:31 | NUR ---
ADMINISTERED IV FLUIDS ORDERED. PT TOLERATED WELL.
--- NOTE | 2016-07-03 10:17 | NUR ---
PT SLEEPING WITH NO DISTRESS NOTED.
--- NOTE | 2016-07-03 10:44 | NUR ---
CM NOTE CONCURRENT REVIEW FAXED TO [facility] / FAX# [phone], ATTN: SHERLY #[phone] [id number]
--- NOTE | 2016-07-03 11:44 | NUR ---
PT RESTING WITH NO DISTRESS NOTED. PT EAT TUNA SANDWICH, PT TOLERATED REGULAR DIET WELL.
--- NOTE | 2016-07-03 13:55 | NUR ---
BP 128/73, HR 101. PT C/O 12/19 PAIN, ADMINISTERED MORPHINE ORDERED. WILL CONTINUE TO MONITOR. PT TO HAVE FAMILY PICK HIM UP AT 1600.
--- NOTE | 2016-07-03 14:00 | NUR ---
PT TO BE DISCHARGED. WILL FOLLOW UP ON ORDERS.
--- NOTE | 2016-07-03 15:10 | NUR ---
PT HAS BEEN DISCHARGED. ALL PAPERWORK SIGNED. ALL QUESTIONS ANSWERED. ALL BELONGINGS AND PRESCRIPTIONS IN PT POSSESSION. IV DC'ED WITH CANNULA INTACT. WRISTBANDS REMOVED. NOTIFIED TIP FIXER. PT WHEELED OUT OF UNIT, FAMILY PRESENT AT BEDSIDE. PT AMBULATED TO VEHICLE WITH STEADY GAIT. PT IN STABLE CONDITION.
== END 2016-07-03 15:10 | disposition home or self-care (01) | DRG 254 ==
LOC: MED 21:40 → MTU 06-30 01:22
PROVIDERS: ADMIT Hospitalist; ATTEND Hospitalist
DX: K43.6 Other and unspecified ventral hernia with obstruction, without gangrene (principal); K76.6 Portal hypertension; D69.59 Other secondary thrombocytopenia; E87.1 Hypo-osmolality and hyponatremia; K70.31 Alcoholic cirrhosis of liver with ascites; R16.1 Splenomegaly, not elsewhere classified; F10.21 Alcohol dependence, in remission; E66.9 Obesity, unspecified; I10 Essential (primary) hypertension; K21.9 Gastro-esophageal reflux disease without esophagitis; Z68.34 Body mass index [BMI] 34.0-34.9, adult; D64.9 Anemia, unspecified

== ENCOUNTER 2016-07-06 01:54 | Emergency (ER) | payer OTHER ==
[~2016-07-06] VITALS: Ht 162.6 cm; Wt 93.0 kg
[~2016-07-06 01:54] MED LIST changes: +LASIX40 MG PO
[2016-07-06 02:03] VITALS: BP 113/67
[2016-07-06] MEDS ORDERED: ALUMINUM HYD/MAG/SIMETHICONE 30 ML UDC PO ONE (02:25)
--- NOTE | 2016-07-06 02:25 | NUR ---
PATIENT PRESENTS TO ED WITH LUQ ABD PAIN . 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 PT REPORTS HX OF CIRRHOSIS AND HERNIA . DENIES N/V/D; SKIN IS PINK/WARM/DRY; AAOX4 WITH EVEN AND STEADY GAIT; LUNGS CLEAR BL; HR EVEN AND REGULAR; PT DENIES ANY FEVER, CP, SOB, OR COUGH AT THIS TIME; PATIENT STATES PAIN OF 9/10 AT THIS TIME; VSS; PATIENT POSITIONED FOR COMFORT; HOB ELEVATED; BEDRAILS UP X2; BED DOWN. ER MD MADE AWARE OF PT STATUS.
--- NOTE | 2016-07-06 02:35 | NUR ---
Dr. Ojeda evaluating patient at bedside.
[2016-07-06 03:12] VITALS: BP 113/67
--- NOTE | 2016-07-06 03:12 | NUR ---
Patient discharged with v/s stable. Written and verbal after care instructions given and explained. Patient verbalized understanding. Ambulatory with steady gait. All questions addressed prior to discharge. Advised to follow up with PMD.
== END 2016-07-06 03:12 | disposition home or self-care (01) ==
LOC: MED 01:54
DX: R10.84 Generalized abdominal pain (principal); K21.9 Gastro-esophageal reflux disease without esophagitis; I10 Essential (primary) hypertension

== ENCOUNTER 2016-08-02 12:43 | Emergency (ER) | payer OTHER ==
[~2016-08-02] VITALS: Ht 162.6 cm; Wt 90.7 kg
[2016-08-02 13:08] VITALS: BP 124/69
--- NOTE | 2016-08-02 13:15 | NUR ---
Patient ambulated to bed 5. COBBLER UPPER evaluating patient at bedside.
--- NOTE | 2016-08-02 13:23 | NUR ---
35/M presents to ED for evaluation of wound to left thigh. Pt was seen here on 06/10/16 for the initial injury and states he wound is not healing. Wound appears clean, no drainage noted. Pt states "They gave me [facility] but I have cirrhosis so I laid off of them." Patient c/o 5 pain. Patient is AOX4, ambulatory with steady gait. HX CIRRHOSIS, UMBILICAL HERNIA, ANEMIA
[2016-08-02 14:02] VITALS: BP 124/69
== END 2016-08-02 14:03 | disposition home or self-care (01) ==
LOC: MED 12:44
DX: S71.112D Laceration without foreign body, left thigh, subsequent encounter (principal); K21.9 Gastro-esophageal reflux disease without esophagitis; I10 Essential (primary) hypertension; Z79.899 Other long term (current) drug therapy; V22 Motorcycle rider injured in collision with two- or three-wheeled motor vehicle; Y92.89 Other specified places as the place of occurrence of the external cause; Y99.8 Other external cause status

== ENCOUNTER 2016-09-16 22:48 | Emergency (ER) | payer OTHER ==
[~2016-09-16] VITALS: Ht 162.6 cm; Wt 87.1 kg
[2016-09-16 22:54] VITALS: BP 143/78
--- NOTE | 2016-09-16 23:11 | NUR ---
PT C/O ABDOMINAL DISTENTION, HEADACHE, CONSTIPATION STARTED THIS MORNING.
--- NOTE | 2016-09-16 23:13 | NUR ---
Dr. Rogel evaluating patient at bedside.
[2016-09-16] MEDS ORDERED: DICYCLOMINE 20 MG/2 ML VIAL IM ONE (23:20)
[2016-09-16] MEDS ORDERED: ONDANSETRON 4 MG ODT PO ONE (23:20)
--- NOTE | 2016-09-16 23:22 | NUR ---
Pt report given to RICCI GRECO AT BEDSIDE. Transfer of care at this time.
[2016-09-16 23:45] VITALS: BP 133/81
--- NOTE | 2016-09-16 23:45 | NUR ---
Patient discharged with v/s stable. Written and verbal after care instructions given and explained. Patient alert, oriented and verbalized understanding of instructions. Ambulatory with steady gait. All questions addressed prior to discharge. ID band removed. Patient advised to follow up with PMD TOMORROW OR RETURN TO ER IF CONDITION WORSENS. Rx of ZOFRAN AND BENTYL given. Patient educated on indication of medication including possible reaction and side effects. Opportunity to ask questions provided and answered.
== END 2016-09-16 23:45 | disposition home or self-care (01) ==
LOC: MED 22:48
DX: R51 Headache (principal); R11.0 Nausea; R10.9 Unspecified abdominal pain; K21.9 Gastro-esophageal reflux disease without esophagitis; I10 Essential (primary) hypertension
CPT/HCPCS: 96372; 99283; J0500; S0119

== ENCOUNTER 2016-09-20 20:53 | Emergency (ER) | payer OTHER ==
[~2016-09-20] VITALS: Ht 162.6 cm; Wt 92.2 kg
[~2016-09-20 20:53] MED LIST changes: -ALDACTONE25 M1 PO; -AMOXICILLIN500 MG PO; -BIAXIN500 MG PO; +CEP30L PO; -CEPHULAC10 GM/152 PO; -CIPRO500 MG PO; -CORGARD20 M1 PO; -FLAGYL250 MG PO; -FLORASTOR 33 MG1 CAP PO; -FOLATE1 MG PO; +FOLI1TAB19 PO; +FURO-570 PO; +HYDR-4446 PO; -LASIX20 MG PO; -LASIX40 MG PO; +MULT-1640 PO; -MULTI-DAY PLUS1 TA1 PO; +NADO20TA PO; -NORCO 5/325 MG1 TAB PO; -PROTONIX40 MG PO; +SACC250C1 PO; +SPIR25TA PO; +THIA100T25 PO; -VITAMIN B1100 M3 PO
[2016-09-20 21:11] VITALS: BP 130/68
--- NOTE | 2016-09-20 21:47 | NUR ---
PT TAKEN TO BED 6
--- NOTE | 2016-09-20 21:59 | NUR ---
PT IS 35/M PRESENT TO ER C/O ABDOMINAL PAIN x 0530 TODAY. PAIN 10/10 GENERALIZED ABDOMINAL PAIN NON RADIATING. PT DENIES NVD OR INJURY. PT STATES MED HX: CIRHOSIS, HERNIA, CLAVICULAR FX. PT IS 35/M PRESENT TO ER C/O ABDOMINAL PAIN x 0530 TODAY. PAIN 10/10 GENERALIZED ABDOMINAL PAIN NON RADIATING. PT DENIES NVD OR INJURY. PT STATES MED HX: CIRHOSIS, HERNIA, CLAVICULAR FXDENIES V; SKIN IS PINK/WARM/DRY; AAOX4 WITH EVEN AND STEADY GAIT; LUNGS CLEAR BL; HR EVEN AND REGULAR; PT DENIES ANY FEVER, CP, SOB, OR COUGH AT THIS TIME; PATIENT STATES PAIN OF 10/10 AT THIS TIME; VSS; PATIENT POSITIONED FOR COMFORT; HOB ELEVATED; BEDRAILS UP X2; BED DOWN. ER MD MADE AWARE OF PT STATUS.
[2016-09-20] MEDS ORDERED: DICYCLOMINE HCL LIQUID 20 MG, ALUMINUM HYD/MAG/SIMETHICONE 30 ML, LIDOCAINE VISCOUS 2% ... PO ONE ×3 (22:25)
[2016-09-20 22:30] LABS: BASOPHILS # (AUTO) 0.2 K/uL (0.00-0.22); BASOPHILS % (AUTO) 3.4 % (0.0-2.0); EOSINOPHILS # (AUTO) 0.1 K/uL (0-0.4); EOSINOPHILS % (AUTO) 2.2 % (0.0-4.0); HEMATOCRIT 34.5 % (36-52); HEMOGLOBIN 11.3 g/dL (12.0-18.0); LYMPHOCYTES # (AUTO) 1.6 K/uL (2.0-11.5); LYMPHOCYTES % (AUTO) 31.5 % (20.5-51.1); MEAN CORPUSCULAR HEMOGLOBIN 31 pg (27-31); MEAN CORPUSCULAR HGB CONC 33 g/dL (33-37); MEAN CORPUSCULAR VOLUME 96 fL (80-94); MONOCYTES # (AUTO) 0.6 K/uL (0.8-1.0); MONOCYTES % (AUTO) 12.8 % (1.7-9.3); NEUTROPHILS # (AUTO) 2.5 K/uL (1.8-7.7); NEUTROPHILS % (AUTO) 50.1 % (42.2-75.2); PLATELET COUNT (AUTO) 65 K/uL (140-450); RED BLOOD CELL COUNT(AUTO) 3.61 MIL/uL (4.20-6.10); RED CELL DISTRIBUTION WIDTH 13.6 % (11.6-13.7)
[2016-09-20 22:40] LABS: ANION GAP 7.2 (8-16); CALCIUM 8.2 mg/dL (8.5-10.1); CARBON DIOXIDE 27.6 mmol/L (21-32); CREATININE 1.3 mg/dL (0.6-1.3); POTASSIUM 4.8 mmol/L (3.5-5.1)
[2016-09-20 22:46] LABS: ALBUMIN 2.5 g/dL (3.4-5.0); TOTAL BILIRUBIN 1.7 mg/dL (0.0-1.0); TOTAL PROTEIN, SERUM 7.2 g/dL (6.4-8.2)
--- NOTE | 2016-09-20 23:25 | NUR ---
PT RESTING IN BED. NO SOB NOTED AT THIS TIME. PT STILL NOT ABLE TO PROVIDE URINE AT THIS TIME. JESSICA PENNINGTON MADE AWARE.
[2016-09-20 23:55] VITALS: BP 129/58
--- NOTE | 2016-09-20 23:56 | NUR ---
Patient discharged with v/s stable. Written and verbal after care instructions given and explained. Patient alert, oriented and verbalized understanding of instructions. Ambulatory with steady gait. All questions addressed prior to discharge. ID band removed. Patient advised to follow up with PMD. Rx of PRILOSEC AND ZOFRAN given. Patient educated on indication of medication including possible reaction and side effects. Opportunity to ask questions provided and answered.
== END 2016-09-20 23:56 | disposition home or self-care (01) ==
LOC: MED 20:53
DX: K42.9 Umbilical hernia without obstruction or gangrene (principal); K74.60 Unspecified cirrhosis of liver; K21.9 Gastro-esophageal reflux disease without esophagitis; I10 Essential (primary) hypertension; Z79.899 Other long term (current) drug therapy
CPT/HCPCS: 80053; 83690; 85025; 99284

== ENCOUNTER 2016-09-27 16:18 | Emergency (ER) | payer OTHER ==
[~2016-09-27] VITALS: Ht 162.6 cm; Wt 93.0 kg
[2016-09-27 16:25] VITALS: BP 136/85
--- NOTE | 2016-09-27 16:40 | NUR ---
Pt taken to bed 8
--- NOTE | 2016-09-27 16:51 | NUR ---
35/M presents to ED for evaluation headache and nausea for the past 2 days. Pt also c/o generalized weakness for the past two days. Patient also c/o constipation and dizziness. Patient is AOX4, ambulatory with steady gait. VSS.
--- NOTE | 2016-09-27 17:24 | NUR ---
Dr. Daly evaluating patient at bedside.
--- NOTE | 2016-09-27 17:25 | NUR ---
Patient being evaluated by physician at bedside.
[2016-09-27] MEDS ORDERED: NACL 0.9% 1,000 ML IV ONE (17:28)
[2016-09-27] MEDS ORDERED: METOCLOPRAMIDE 10 MG/2 ML INJ VIAL IVP ONE (17:30)
[2016-09-27] MEDS ORDERED: diphenhydrAMINE 50 MG/ML VIAL IVP ONE (17:30)
--- NOTE | 2016-09-27 18:12 | NUR ---
Pt states "I feel better. I can go now." Dr. Daly made aware.
--- NOTE | 2016-09-27 18:17 | NUR ---
IV removed, catheter intact and site benign. Applied folded 4x4 gauze and tape to stop bleeding.
[2016-09-27 18:45] VITALS: BP 95/56
--- NOTE | 2016-09-27 18:45 | NUR ---
Chart checked and completed. The patient's care was reviewed and supervised by Ena Wagner RN.
== END 2016-09-27 18:45 | disposition home or self-care (01) ==
LOC: MED 16:18
DX: R51 Headache (principal); K21.9 Gastro-esophageal reflux disease without esophagitis; I10 Essential (primary) hypertension; Z88.6 Allergy status to analgesic agent
CPT/HCPCS: 96374; 96375; 99284; J1200; J2765; J7030

== ENCOUNTER 2016-10-02 03:34 | Inpatient (IN) | payer OTHER ==
[~2016-10-02] VITALS: Ht 162.6 cm; Wt 90.7 kg
[~2016-10-02 03:34] MED LIST changes: +ALDACTONE25 M1 PO; +AMOXICILLIN500 MG PO; +BIAXIN500 MG PO; -CEP30L PO; +CEPHULAC10 GM/152 PO; +CIPRO500 MG PO; +CORGARD20 M1 PO; +FLAGYL250 MG PO; +FLORASTOR 33 MG1 CAP PO; +FOLATE1 MG PO; -FOLI1TAB19 PO; -FURO-570 PO; -HYDR-4446 PO; +LASIX20 MG PO; +LASIX40 MG PO; -MULT-1640 PO; +MULTI-DAY PLUS1 TA1 PO; -NADO20TA PO; +NORCO 5/325 MG1 TAB PO; +PROTONIX40 MG PO; -SACC250C1 PO; -SPIR25TA PO; -THIA100T25 PO; +VITAMIN B1100 M3 PO
[2016-10-02 03:37] VITALS: BP 113/69
--- NOTE | 2016-10-02 03:37 | NUR ---
PT TAKEN TO BED 4
--- NOTE | 2016-10-02 03:37 | NUR ---
35 Y/O M BIB FAMILY W/C/O L LOWER ABD PAIN X TODAY AT MIDNIGHT. PT STATES HAS A HX OF CIRRHOSIS. ER MADE AWARE. PT ON MONITOR, VSS.
--- NOTE | 2016-10-02 03:44 | NUR ---
Dr. Huynh evaluating patient at bedside.
--- NOTE | 2016-10-02 03:53 | NUR ---
PER ER MD WRITTEN ORDERS TO GIVE ONDASETRON 4MG/2ML IV FOR NAUSEA AND MORPHINE 4MG/1ML IV FOR PAIN. MEDICATIONS GIVEN PT TOLERATED WELL.
[2016-10-02] MEDS ORDERED: MORPHINE SULFATE 4 MG/ML SYR ONE (03:57)
[2016-10-02] MEDS ORDERED: ONDANSETRON 4 MG/2 ML VIAL ONE (03:58)
--- NOTE | 2016-10-02 04:25 | NUR ---
PT TAKEN TO CT
[2016-10-02] MEDS ORDERED: MORPHINE SULFATE 4 MG/ML SYR IVP ONE ×2 (05:10→06:05)
[2016-10-02] MEDS ORDERED: ONDANSETRON 4 MG/2 ML VIAL IVP ONE (05:10)
--- NOTE | 2016-10-02 06:23 | NUR ---
Patient will be admitted to care of DR HE. Admited to MED SURG. Will go to room 122A. Belongings list completed. Report to FANNIE TEJEDA.
[2016-10-02] MEDS: NACL 0.9% 1,000 ML IV SCH ×2 (06:49→16:20)
[2016-10-02] MEDS ORDERED: ONDANSETRON 4 MG/2 ML VIAL IVP PRN (06:50)
[2016-10-02] MEDS ORDERED: ALBUTEROL 0.083% 2.5 MG/3 ML NEBU INH PRN (06:50)
[2016-10-02] MEDS ORDERED: LORazepam 2 MG/ML VIAL IVP PRN (06:50)
--- NOTE | 2016-10-02 06:57 | NUR ---
[facility] Admited to Med/Surg. Will go to room 122A. Belongings list completed. Report to LISANDRA.
--- NOTE | 2016-10-02 06:58 | NUR ---
Pt transferred to Med/Surg via W/C WITH EMT .
[2016-10-02 07:00] VITALS: BP 126/69
--- NOTE | 2016-10-02 07:02 | NUR ---
RECEIVED REPORT FROM NIGHT RN. PT SLEEPING IN BED, NO S/S OF ACUTE DISTRESS NOTED, IV INTACT AND PATENT, A/O X 4, CALL LIGHT WITHIN REACH, SAFETY MEASURE ENSURED, WILL CONTINUE TO MONITOR.
--- NOTE | 2016-10-02 08:23 | NUR ---
CM NOTE INITIAL REVIEW SENT TO [facility] FAX# [phone] PH# [phone]
[2016-10-02] MEDS: MORPHINE SULFATE 2 MG/ML SYR IVP PRN ×3 (10:25→20:05)
--- NOTE | 2016-10-02 10:35 | NUR ---
PATIENT STATED PAIN 7/10, ABDOMINAL AREA. NO S/S OF ACUTE DISTRESS NOTED, PAIN MEDS GIVEN ORDERED. WILL CONTINUE TO MONITOR
--- NOTE | 2016-10-02 11:59 | NUR ---
DR. SILVER IN TO SEE PT. WILL FOLLOW UP WITH PLAN OF CARE.
--- NOTE | 2016-10-02 14:05 | NUR ---
PT SLEEPING IN BED. NO S/S OF ACUTE DISTRESS. CALL LIGHT WITHIN REACH. SAFETY MEASURES ENSURED. WILL CONTINUE TO MONITOR.
[2016-10-02 16:00] VITALS: BP 130/89
--- NOTE | 2016-10-02 18:09 | NUR ---
PT SLEEPING IN BED, NO S/S OF ACUTE DISTRESS. CALL LIGHT WITHIN REACH. SAFETY MEASURES ENSURED. WILL CONTINUE TO MONITOR.
--- NOTE | 2016-10-02 19:11 | NUR ---
ENDORSED PLAN OF CARE TO NIGHT RN. PT REMAINS IN STABLE CONDITION.
--- NOTE | 2016-10-02 19:20 | NUR ---
RECEIVED REPORT, ASSUMED CARE. PT AAOX4. FAMILY AT BEDSIDE. RESPIRATION EVEN AND UNLABORED. C/O ABDOMINAL PAIN AT THIS TIME 12/19. WILL MEDICATE PATIENT TO RELIEVE PAIN. IV ACCESS TO LT AC #20, NO S/S OF INFILTRATION. INFUSING NS AT 100ML/HR. CALL LIGHT WITHIN EASY REACH. WILL CONTINUE TO MONITOR.
--- NOTE | 2016-10-02 20:05 | NUR ---
PT ON NPO ORDERED. DISCUSSED PLAN OF CARE TO THE PATIENT, HE VERBALIZED UNDERSTANDING.
[2016-10-03] VITALS: BP 112/70
[2016-10-03] MEDS: MORPHINE SULFATE 2 MG/ML SYR IVP PRN ×5 (00:31→23:08)
[2016-10-03] MEDS: NACL 0.9% 1,000 ML IV SCH ×3 (02:49→23:01)
--- NOTE | 2016-10-03 02:50 | NUR ---
PT AWAKE AT THIS TIME ASKING FOR A CUP OF ICE CHIPS. REMINDED PT ABOUT HIS SURGERY SCHEDULED TODAY AT 0830. HE VERBALIZED UNDERSTANDING . PT DENIES ANY PAIN AT THIS TIME. WILL CONTINUE TO MONITOR.
--- NOTE | 2016-10-03 05:10 | NUR ---
HEPARIN DOSE HELD DUE TO SCHEDULED SURGERY TODAY AT 0830.
[2016-10-03] MEDS ORDERED: ceFAZolin 1,000 MG VIAL ONE ×3 (07:26→20:11)
[2016-10-03] MEDS: BUPIVACAINE-MPF/EPI 0.25% 30 ML VIAL INJ ONE ×2 (07:26→13:31)
--- NOTE | 2016-10-03 07:30 | NUR ---
PT AWAKE, VERBALLY RESPONSIVE. NO C/O PAIN AT THIS TIME. ENDORSED TO NEXT SHIFT FOR CONTINUITY OF CARE. PT IN STABLE CONDITION.
--- NOTE | 2016-10-03 07:31 | NUR ---
RECEIVED REPORT FROM THE ELECTROMEDICAL EQUIPMENT TECHNICIAN NURSE AT BEDSIDE FOR CONTINUITY OF CARE. IS AWAKE AND ORIENTED. INTRODUCED MYSELF AND UPDATED THE BOARD. PT DENIES ANY PAIN OR DISCOMFORT AT THIS TIME. NOTED THE IV L AC 20G NS AT 100ML. IV INTACT. PT HAS A WOUND ON L THIGH, DRESSING INTACT AND DRY. ORIENTED PT OF PLANS FOR TODAY. HE IS TO HAVE SURGERY THIS MORNING. TICKET TO RIDE, PRE OP SURVEY ALL DONE. PT HAS BEEN NPO SINCE LAST NIGHT. WILL CONTINUE TO MONITOR PT. S
[2016-10-03 08:00] VITALS: BP 114/60
--- NOTE | 2016-10-03 08:15 | NUR ---
2 OR NURSES HERE TO PROFESSOR OF APOLOGETICS PT FOR SURGERY. ANN'Eleuterio IV.
--- NOTE | 2016-10-03 09:17 | NUR ---
PT RETURNED. PLATELET TOO LOW FOR SURGERY. ORDERED PLATELETS INFUSION. HE WILL RETURN TO OR ONCE HE IS DONE.
--- NOTE | 2016-10-03 09:18 | NUR ---
PATIENT HAS BEEN SCREENED AND CATEGORIZED MODERATE NUTRITION RISK. PATIENT WILL BE SEEN WITHIN 3-5 DAYS OF ADMISSION. 10/04/16-10/06/[address]
--- NOTE | 2016-10-03 09:37 | NUR ---
CM NOTE CONCURRENT REVIEW SENT TO [facility] FAX# [phone] PH# [phone] MARCELO FARRELL [id number] TRACKING# [id number]
--- NOTE | 2016-10-03 10:43 | NUR ---
OR NURSES HERE. THEY WILL TAKE PT. PLATELETS ARE AVAILABLE. THEY WILL GIVE IT IN PACU.
[2016-10-03] MEDS ORDERED: SEVOFLURANE 250 ML BTL INH ONE (10:55)
[2016-10-03] MEDS ORDERED: PROPOFOL 200 MG/20 ML VIAL IV ONE (10:55)
[2016-10-03] MEDS ORDERED: ONDANSETRON 4 MG/2 ML VIAL ONE (10:55)
[2016-10-03] MEDS ORDERED: SUCCINYLCHOLINE CHLORIDE 200 MG/10 ML VIAL IVP ONE (10:55)
[2016-10-03] MEDS ORDERED: DEXAMETHASONE 4 MG/ML VIAL ONE (10:55)
[2016-10-03] MEDS ORDERED: MIDAZOLAM 2 MG/2 ML VIAL ONE (10:56)
[2016-10-03] MEDS ORDERED: CISATRACURIUM 20 MG/10 ML IV ONE (10:57)
[2016-10-03] MEDS ORDERED: MEPERIDINE 50 MG/ML SYR ONE (10:57)
[2016-10-03] MEDS ORDERED: fentaNYL 0.05 MG/ML VIAL ONE (10:57)
[2016-10-03] MEDS ORDERED: ONDANSETRON 4 MG/2 ML VIAL IVP PRN (11:50)
[2016-10-03] MEDS ORDERED: MEPERIDINE 25 MG/ML SYR IVP PRN (11:50)
[2016-10-03] MEDS ORDERED: diphenhydrAMINE 50 MG/ML VIAL IVP PRN (11:50)
[2016-10-03] MEDS ORDERED: HYDROmorphone 1 MG/ML AMP IVP PRN (11:50)
[2016-10-03] MEDS: LACTATED RINGERS 1,000 ML IV SCH ×2 (11:50→20:10)
--- NOTE | 2016-10-03 12:21 | NUR ---
10/03/16 RD INITIAL ASSESSMENT COMPLETED PLEASE REFER TO NUTRITION ASSESSMENT UNDER CARE ACTIVITY FOR ESTIMATED NUTRITIONAL NEEDS. RD RECOMMENDATIONS: 1. WHEN MEDICALLY APPROPRIATE ADVANCE DIET TO REGULAR DIET TOLERATED. 2. INCREASED PROTEIN AND KCAL NEEDS FOR CIRRHOSIS 3. RD WILL F/U 3-5 DAYS; MODERATE RISK. VEDA MEJIA, MARIBEL
[2016-10-03] MEDS ORDERED: HYDROmorphone PFS 2 MG/ML SYR ONE (13:05)
[2016-10-03 13:35] VITALS: BP 133/70
--- NOTE | 2016-10-03 13:35 | NUR ---
MARIUSZ, OR NURSE BROUGHT PT BACK FROM SURGERY, S/P HERNIA REPAIR. PT IS DROWSY. NO COMPLAINTS OF PAIN. PT HAS A MARYANNE DRAIN AND A JEONG CATH. PT HAS A LARGE ISLAND DRESSING IN THE ABD. IS AT BEDSIDE. WE STILL RESUME POST OP PROTOCOL. V/S WITHIN NORMAL LIMITS. Addendum: 10/03/16 at 1420 by Huong Castañeda RN 2 UNITS OF PLATELET WAS GIVEN PRIOR TO SURGERY IN PACU.
[2016-10-03 13:50] VITALS: BP 124/83
--- NOTE | 2016-10-03 15:00 | NUR ---
PT SLEEPING IN BED. FAMILY AT BEDSIDE. VS WNL. WILL CONTINUE TO MONITOR.
[2016-10-03 16:00] VITALS: BP 131/80
--- NOTE | 2016-10-03 17:00 | NUR ---
PAGED DR. IVEY DUE TO NO ORDER FOR ADENIKE. WILL SPEAK TO DR. IVEY ONCE HE CALLS BACK.
--- NOTE | 2016-10-03 18:00 | NUR ---
PT IS EATING CLEAR LIQUID FOOD IN BED. TOLERATING WELL. CALL LIGHT WITHIN REACH. WILL CONTINUE TO MONITOR.
--- NOTE | 2016-10-03 19:15 | NUR ---
EMPTIED 50 ML OF SEROSANGUINOUS DRAINAGE FROM MARYANNE DRAIN. PT TOLERATED WELL. WILL CONTINUE TO MONITOR.
--- NOTE | 2016-10-03 19:16 | NUR ---
ENDORSED PT TO LIBRARY TECHNOLOGY INSTRUCTOR NURSE. PT IN STABLE CONDITION.
--- NOTE | 2016-10-03 19:18 | NUR ---
RECEIVED REPORT, ASSUMED CARE. PT AAOX4. FAMILY AT BEDSIDE. RESPIRATION EVEN AND UNLABORED. NO C/O PAIN AT THIS TIME. IV ACCESS TO LT AC #20, NO S/S OF INFILTRATION. JEONG CATH IN PLACE, DRAINING DARK SANDRA URINE. MARYANNE PRESENT, DRAINING SEROSANGUINOUS. ABDOMINAL DRESSING INTACT, CLEAN, NO ACTIVE BLEEDING TO THE SITE. CALL LIGHT WITHIN EASY REACH. WILL CONTINUE TO MONITOR.
--- NOTE | 2016-10-03 21:05 | NUR ---
SPOKE WITH DR. IVEY, DISCUSSED PT'S REQUEST TO HAVE JEONG CATH REMOVED. STATES, "OKAY". WILL CARRY OUT ORDER. PT MADE AWARE AND VERBALIZED UNDERSTANDING AND APPRECIATION.
--- NOTE | 2016-10-03 21:38 | NUR ---
RECEIVED A CALL FROM DR. IVEY, HE ORDERED NOT TO REMOVE JEONG CATH YET. PER MD, HE'LL SEE THE PATIENT TONIGHT. PT MADE AWARE AND VERBALIZED UNDERSTANDING.
--- NOTE | 2016-10-03 22:48 | NUR ---
PT STILL AWAKE AT THIS TIME WATCHING TV. C/O ABDOMINAL PAIN, REQUESTING FOR MORPHINE. EXPLAINED TO PT IT IS NOT DUE YET. ENCOURAGED TO USE RELAXATION TECHNIQUES AND DEEP BREATHING EXERCISES. REPOSITION FOR COMFORT. MARYANNE INTACT. NO BLEEDING TO THE SURGICAL SITE AT THIS TIME. WILL CONTINUE TO MONITOR.
[2016-10-04] VITALS: BP 120/62
--- NOTE | 2016-10-04 00:30 | NUR ---
ROUNDS MADE, PT SLEEPING AT THIS TIME. NO FACIAL GRIMACING OR MOANING INDICATING PAIN. CALL LIGHT WITHIN REACH. WILL CONTINUE TO MONITOR.
[2016-10-04] MEDS: LACTATED RINGERS 1,000 ML IV SCH (04:30)
[2016-10-04] MEDS: MORPHINE SULFATE 2 MG/ML SYR IVP PRN ×4 (05:07→17:20)
--- NOTE | 2016-10-04 07:26 | NUR ---
RECEIVED REPORT FROM NIGHT NURSE PT IS AAOX4, ON ROOM AIR, IV TO LEFT AC 20G INFUSING WELL, ABD DRESSING DRY AND INTACT, MARYANNE DRAIN IN PLACE, JEONG IN PLACE DRAINING SANDRA COLOR URINE. INITIAL ASSESSMENT COMPLETED, REVIEWED PLAN OF CARE WITH PT, PT VERBALIZED UNDERSTANDING. ALL SAFETY PRECAUTIONS MET, ALL NEEDS MET. CALL LIGHT WITHIN REACH. WILL CONTINUE TO MONITOR.
--- NOTE | 2016-10-04 07:26 | NUR ---
PT AWAKE AND VERBALLY RESPONSIVE. NO C/O PAIN, NO S/S OF RESPIRATORY DISTRESS AT THIS TIME. ALL NEEDS MET. ENDORSED TO NEXT SHIFT FOR CONTINUITY OF CARE. PT IN STABLE CONDITION.
[2016-10-04 08:00] VITALS: BP 118/66
[2016-10-04] MEDS: NACL 0.9% 1,000 ML IV SCH (08:49)
--- NOTE | 2016-10-04 09:13 | NUR ---
PT C/O OF ABD PAIN 12/19, MEDICATED PER MD ORDERS. ALL NEEDS MET. CALL LIGHT WITHIN REACH.
[2016-10-04] MEDS ORDERED: PERCOCET 325 MG1 TA1 PO (10:00)
--- NOTE | 2016-10-04 12:52 | NUR ---
DUE MEDICATIONS GIVEN. ALL NEEDS MET. CALL LIGHT WITHIN REACH. WILL CONTINUE TO MONITOR.
--- NOTE | 2016-10-04 13:38 | NUR ---
FAXED CONCURRENT REVIEW TO [facility] [phone] PHONE [phone] [place] [phone]
--- NOTE | 2016-10-04 15:45 | NUR ---
JEONG WAS DC OUTPUT OF 900ML DARK SANDRA URINE. WILL CONTINUE TO MONITOR.
[2016-10-04 16:00] VITALS: BP 122/80
--- NOTE | 2016-10-04 17:40 | NUR ---
DISCUSSED DISCHARGE PLAN WITH PT, PT VERBALIZED UNDERSTANDING. ABD DRESSING CHANGED WITH AT TOTAL OF 10 EBENEZER, MARYANNE DRAIN OF 40ML BRIGHT RED DRAINAGE. ALL NEEDS MET. WILL CONTINUE TO MONITOR.
--- NOTE | 2016-10-04 18:01 | NUR ---
PT SIGNED ALL DISCHARGE PAPERWORK, IV REMOVED TIP INTACT, DISCHARGE EDUCATION GIVEN PT VERBALIZED UNDERSTANDING. ALL PERSONAL BELONGINGS WITH PT. DISCHARGE PACKET GIVEN TO PT. AWAITING FOR SISTER TO RETAIL ADVERTISING SALES MANAGER PT.
--- NOTE | 2016-10-04 18:30 | NUR ---
PT WAS WALKED TO FRONT LOBBY IN STABLE CONDITION. ALL PERSONAL BELONGINGS WITH PT.
== END 2016-10-04 18:30 | disposition home or self-care (01) | DRG 228 ==
LOC: MED 03:34 → MTU 06:52 → UNDOADMIN 06:52 → MTU 06:53
PROVIDERS: ADMIT Hospitalist; ATTEND Hospitalist
PROC: 30233R1 Transfusion of Nonautologous Platelets into Peripheral Vein, Percutaneous Approach (ICD-10-PCS; 2016-10-03)
PROC: 0WUF0JZ Supplement Abdominal Wall with Synthetic Substitute, Open Approach (ICD-10-PCS; principal; 2016-10-03 08:30)
DX: K42.0 Umbilical hernia with obstruction, without gangrene (principal); D68.9 Coagulation defect, unspecified; K76.6 Portal hypertension; D69.59 Other secondary thrombocytopenia; K74.60 Unspecified cirrhosis of liver; R16.1 Splenomegaly, not elsewhere classified; F10.10 Alcohol abuse, uncomplicated; Y90.9 Presence of alcohol in blood, level not specified; D64.9 Anemia, unspecified; K21.9 Gastro-esophageal reflux disease without esophagitis; I10 Essential (primary) hypertension; K72.90 Hepatic failure, unspecified without coma; E66.9 Obesity, unspecified; Z96.49 Presence of other endocrine implants; Z88.6 Allergy status to analgesic agent; Z87.898 Personal history of other specified conditions; Z68.34 Body mass index [BMI] 34.0-34.9, adult

== ENCOUNTER 2016-12-16 23:25 | Emergency (ER) | payer OTHER ==
[~2016-12-16] VITALS: Ht 162.6 cm; Wt 96.7 kg
[~2016-12-16 23:25] MED LIST changes: +ACET-5629 PO; -ALDACTONE25 M1 PO; -AMOXICILLIN500 MG PO; -BIAXIN500 MG PO; -CEPHULAC10 GM/152 PO; -CIPRO500 MG PO; -CORGARD20 M1 PO; -FLAGYL250 MG PO; -FLORASTOR 33 MG1 CAP PO; -FOLATE1 MG PO; +FOLI1TAB19 PO; +FURO-570 PO; +LACT10SO11 PO; -LASIX20 MG PO; -LASIX40 MG PO; +MULT-1640 PO; -MULTI-DAY PLUS1 TA1 PO; +NADO20TA PO; -NORCO 5/325 MG1 TAB PO; -PROTONIX40 MG PO; +SACC250C1 PO; +SPIR25TA PO; +THIA100T25 PO; -VITAMIN B1100 M3 PO
[2016-12-16 23:39] VITALS: BP 122/76
--- NOTE | 2016-12-16 23:49 | NUR ---
Patient ambulated to bed 07.
--- NOTE | 2016-12-16 23:50 | NUR ---
35 Y/O M W/C/O LOWER ABD PAIN, NAUSEA, VOMITING AND DIARRHEA X FRIDAY. STATES HIS PAIN 01/19. ER MD MADE AWARE.
--- NOTE | 2016-12-17 00:07 | NUR ---
Dr. Dick evaluating patient at bedside.
[2016-12-17] MEDS ORDERED: ONDANSETRON 4 MG/2 ML VIAL IVP ONE (00:10)
[2016-12-17] MEDS ORDERED: NACL 0.9% 1,000 ML IV ONE (00:10)
[2016-12-17] MEDS ORDERED: fentaNYL 0.05 MG/ML VIAL IVP ONE (00:10)
[2016-12-17 00:35] LABS: HEMATOCRIT 32.2 % (36-52); HEMOGLOBIN 10.3 g/dL (12.0-18.0); MEAN CORPUSCULAR HEMOGLOBIN 31 pg (27-31); MEAN CORPUSCULAR HGB CONC 32 g/dL (33-37); MEAN CORPUSCULAR VOLUME 97 fL (80-94); RED BLOOD CELL COUNT(AUTO) 3.32 MIL/uL (4.20-6.10); RED CELL DISTRIBUTION WIDTH 14.6 % (11.6-13.7)
[2016-12-17 00:43] LABS: ALBUMIN 2.5 g/dL (3.4-5.0); ANION GAP 9.4 (8-16); CALCIUM 8.2 mg/dL (8.5-10.1); CARBON DIOXIDE 24.7 mmol/L (21-32); POTASSIUM 5.1 mmol/L (3.5-5.1); TOTAL BILIRUBIN 1.9 mg/dL (0.0-1.0); TOTAL PROTEIN, SERUM 6.3 g/dL (6.4-8.2)
[2016-12-17 00:45] LABS: PLATELET COUNT (AUTO) 54 K/uL (140-450); WHITE BLOOD COUNT (AUTO) 4.6 K/uL (4.8-10.8)
[2016-12-17 00:46] LABS: BAND % (MANUAL) 0 % (0-8); LYMPHOCYTES % (MANUAL) 34 % (20-46); MONOCYTES % (MANUAL) 4 % (5-12); NEUTROPHILS % (MANUAL) 62 (43-65)
[2016-12-17 00:47] LABS: INR 1.4 (0.8-1.2); PARTIAL THROMBOPLASTIN TIME 35.5 secs (22-35.6); PROTHROMBIN TIME 13.8 secs (10.8-13.4)
[2016-12-17 01:28] VITALS: BP 114/57
--- NOTE | 2016-12-17 01:28 | NUR ---
Patient discharged with v/s stable. Written and verbal after care instructions given and explained. Patient alert, oriented and verbalized understanding of instructions. Ambulatory with steady gait. All questions addressed prior to discharge. ID band removed. Patient advised to follow up with PMD OR RETURN TO ER IF CONDITION WORSENS. Rx of ZOFRAN AND TRAMADOL given. Patient educated on indication of medication including possible reaction and side effects. Opportunity to ask questions provided and answered.
== END 2016-12-17 01:28 | disposition home or self-care (01) ==
LOC: MED 23:25
DX: K52.9 Noninfective gastroenteritis and colitis, unspecified (principal); K21.9 Gastro-esophageal reflux disease without esophagitis; I10 Essential (primary) hypertension; K74.60 Unspecified cirrhosis of liver
CPT/HCPCS: 36415; 80053; 85025; 85610; 85730; 96361; 96374; 96375; 99284; J2405; J3010; J7030; 81002

== ENCOUNTER 2017-04-11 01:00 | Emergency (ER) | payer OTHER ==
[~2017-04-11] VITALS: Ht 162.6 cm; Wt 90.7 kg
[2017-04-11 01:06] VITALS: BP 135/65
--- NOTE | 2017-04-11 01:29 | NUR ---
AMBULATED TO ER BED 10
--- NOTE | 2017-04-11 01:30 | NUR ---
PATIENT IS A 36 Y/O MALE WHO PRESENTS TO THE ED C/O ABD PAIN. PT STATES, "MY STOMACH HAS BEEN HURTING AND I DON'T LIKE IT." PT REPORTS 8/10 SHARP PAIN THAT DOES NOT RADIATE. PT DENIES CP, SOB, REPORTS VOMITING/DIARRHEA, DENIES NAUSEA. PT AAOX4, RR EVEN/UNLABORED. PT AAOX4, RR EVEN/UNLABORED. PT REPOSITIONED FOR COMFORT, BED IN LOWEST POSITION. ER MD DR. CORDERO NOTIFIED. WILL CONTINUE TO MONITOR.
[2017-04-11] MEDS ORDERED: HYDROmorphone PFS 2 MG/ML SYR IM ONE (02:00)
[2017-04-11] MEDS ORDERED: diphenhydrAMINE 50 MG/ML VIAL IM ONE (02:00)
[2017-04-11 02:42] VITALS: BP 133/62
--- NOTE | 2017-04-11 02:43 | NUR ---
Patient discharged with v/s stable. Written and verbal after care instructions given and explained. Patient alert, oriented and verbalized understanding of instructions. Ambulatory with to car. All questions addressed prior to discharge. ID band removed. Patient advised to follow up with PMD. NO Rx given. Patient educated on indication of medication including possible reaction and side effects. Opportunity to ask questions provided and answered.
== END 2017-04-11 02:42 | disposition home or self-care (01) ==
LOC: MED 01:00
DX: G89.29 Other chronic pain (principal); K70.30 Alcoholic cirrhosis of liver without ascites; K21.9 Gastro-esophageal reflux disease without esophagitis; I10 Essential (primary) hypertension; Z88.6 Allergy status to analgesic agent
CPT/HCPCS: 96372; 99284; J1170; J1200

== ENCOUNTER 2017-04-12 11:31 | Emergency (ER) | payer OTHER ==
[~2017-04-12] VITALS: Ht 162.6 cm; Wt 99.8 kg
[2017-04-12 11:36] VITALS: BP 119/79
--- NOTE | 2017-04-12 11:43 | NUR ---
Patient ambulated to bed 04.
[2017-04-12] MEDS ORDERED: NACL 0.9% 1,000 ML IV ONE ×2 (11:53→11:55)
--- NOTE | 2017-04-12 11:53 | NUR ---
36/M presents to ED from home with complaints of weakness, nausea x1 hour prior to arrival. Denies pain. Hx liver cirrhosis. AOX4, ambulatory with steady gait. VSS.
[2017-04-12 12:32] LABS: BASOPHILS # (AUTO) 0.2 K/uL (0.00-0.22); BASOPHILS % (AUTO) 3.6 % (0.0-2.0); EOSINOPHILS % (AUTO) 0.7 % (0.0-4.0); HEMATOCRIT 33.5 % (36-52); HEMOGLOBIN 11.2 g/dL (12.0-18.0); LYMPHOCYTES # (AUTO) 0.5 K/uL (2.0-11.5); LYMPHOCYTES % (AUTO) 7.8 % (20.5-51.1); MEAN CORPUSCULAR HEMOGLOBIN 32 pg (27-31); MEAN CORPUSCULAR HGB CONC 34 g/dL (33-37); MEAN CORPUSCULAR VOLUME 94 fL (80-94); MONOCYTES # (AUTO) 0.6 K/uL (0.8-1.0); MONOCYTES % (AUTO) 9.3 % (1.7-9.3); NEUTROPHILS # (AUTO) 4.8 K/uL (1.8-7.7); NEUTROPHILS % (AUTO) 78.6 % (42.2-75.2); PLATELET COUNT (AUTO) 53 K/uL (140-450); RED BLOOD CELL COUNT(AUTO) 3.56 MIL/uL (4.20-6.10); RED CELL DISTRIBUTION WIDTH 14.9 % (11.6-13.7); WHITE BLOOD COUNT (AUTO) 6.1 K/uL (4.8-10.8)
[2017-04-12 12:41] LABS: CARBON DIOXIDE 21.2 mmol/L (21-32); CREATININE 0.9 mg/dL (0.7-1.3); POTASSIUM 4.2 mmol/L (3.5-5.1)
[2017-04-12 12:46] LABS: ALBUMIN 2.4 g/dL (3.4-5.0); TOTAL BILIRUBIN 1.8 mg/dL (0.0-1.0)
[2017-04-12] MEDS ORDERED: LACTULOSE 20 GM/30 ML UDC PO ONE (13:00)
--- NOTE | 2017-04-12 13:07 | NUR ---
Patient resting comfortably in bed. VSS.
--- NOTE | 2017-04-12 13:29 | NUR ---
IV removed, catheter intact and site benign. Applied folded 4x4 gauze and tape to stop bleeding.
[2017-04-12 13:30] VITALS: BP 111/64
== END 2017-04-12 13:30 | disposition home or self-care (01) ==
LOC: MED 11:31
DX: R53.1 Weakness (principal); R11.0 Nausea; I10 Essential (primary) hypertension; K21.9 Gastro-esophageal reflux disease without esophagitis; Z88.6 Allergy status to analgesic agent
CPT/HCPCS: 36415; 80053; 82140; 85025; 96360; 99284; J7030

== ENCOUNTER 2017-05-31 20:42 | Emergency (ER) | payer OTHER ==
[~2017-05-31] VITALS: Ht 162.6 cm; Wt 102.3 kg
[2017-05-31 20:51] VITALS: BP 128/81
--- NOTE | 2017-05-31 20:55 | NUR ---
TO ER BED 11
--- NOTE | 2017-05-31 20:58 | NUR ---
36/M CAME IN W C/O N/V/D, FEVER AND HEADACHE SINCE YESTERDAY, C/O 01/19 ABD PAIN R/T HERNIA. ABD SOFT, ROUND, +TENDERNESS, BS ACTIVE X4. DENIES SOB/COUGH/CP. PMH: CIRRHOSIS
[2017-05-31] MEDS ORDERED: MORPHINE SULFATE 4 MG/ML SYR IVP ONE (21:15)
[2017-05-31] MEDS ORDERED: ONDANSETRON 4 MG/2 ML VIAL IVP ONE (21:15)
[2017-05-31 21:48] LABS: PLATELET COUNT (AUTO) 32 K/uL (140-450)
[2017-05-31 21:51] LABS: HEMATOCRIT 31.7 % (36-52); HEMOGLOBIN 10.7 g/dL (12.0-18.0); MEAN CORPUSCULAR HEMOGLOBIN 32 pg (27-31); MEAN CORPUSCULAR HGB CONC 34 g/dL (33-37); MEAN CORPUSCULAR VOLUME 96 fL (80-94); RED CELL DISTRIBUTION WIDTH 15.3 % (11.6-13.7); WHITE BLOOD COUNT (AUTO) 5.2 K/uL (4.8-10.8)
[2017-05-31 22:00] LABS: ANION GAP 12.3 (8-16); CARBON DIOXIDE 21.1 mmol/L (21-32); CHLORIDE 101 mmol/L (98-107); GFR ARICAN-AMERICAN 108 mL/min (>90); POTASSIUM 4.4 mmol/L (3.5-5.1); SODIUM SERUM 130 mmol/L (136-145)
[2017-05-31 22:15] LABS: ALBUMIN 2.2 g/dL (3.4-5.0); ASPARTATE AMINOTRANSFERASE 44 U/L (15-37); TOTAL BILIRUBIN 2.7 mg/dL (0.0-1.0)
[2017-05-31 22:17] LABS: EOSINOPHILS % (MANUAL) 2 % (0-4); LYMPHOCYTES % (MANUAL) 11 % (20-46); MONOCYTES % (MANUAL) 10 % (5-12)
[2017-05-31 22:20] LABS: GLUCOSE 70 mg/dL (74-106); UREA NITROGEN, BLOOD 28 mg/dL (7-18)
[2017-05-31 23:15] LABS: APPEARANCE,URINE CLEAR (CLEAR); BILIRUBIN,URINE NEGATIVE (NEGATIVE); BLOOD, URINE 3+ (NEGATIVE); COLOR,URINE YELLOW (YELLOW); LEUKOCYTE ESTERASE ,URINE NEGATIVE (NEGATIVE); NITRITE, URINE NEGATIVE (NEGATIVE); UGLUCOSE NEGATIVE (NEGATIVE)
[2017-05-31 23:27] LABS: BARBITURATE, URINE NEGATIVE ng/ml (NEG <=200); BENZODIAZEPINE, URINE NEGATIVE ng/mL (NEG <=200); CANNABINOID, URINE POSITIVE ng/mL (NEG <=50); COCAINE, URINE NEGATIVE ng/mL (NEG <=300); OPIATE, URINE POSITIVE ng/mL (NEG <=2000); PHENCYCLIDINE SCREEN,URINE NEGATIVE ng/mL (NEG <=25)
[2017-05-31 23:30] LABS: RBC,URINE 3-10 (FEW) /HPF (0-5); WBC,URINE 0-5 (RARE) /HPF (0-5)
--- NOTE | 2017-05-31 23:30 | NUR ---
Patient appears to be resting comfortably in bed. Vital Signs within normal limits. Respirations even and unlabored.
--- NOTE | 2017-06-01 01:00 | NUR ---
Patient appears to be resting comfortably in bed. Vital Signs within normal limits. Respirations even and unlabored.
--- NOTE | 2017-06-01 02:49 | NUR ---
Patient appears to be resting comfortably in bed. Vital Signs within normal limits. Respirations even and unlabored.
[2017-06-01] MEDS ORDERED: MORPHINE SULFATE 4 MG/ML SYR IVP ONE (03:10)
--- NOTE | 2017-06-01 04:18 | NUR ---
Patient appears to be resting comfortably in bed. Vital Signs within normal limits. Respirations even and unlabored.
[2017-06-01 04:50] VITALS: BP 127/84
== END 2017-06-01 04:45 | disposition home or self-care (01) ==
LOC: MED 20:42
DX: R10.30 Lower abdominal pain, unspecified (principal); K74.60 Unspecified cirrhosis of liver; D64.9 Anemia, unspecified; D69.6 Thrombocytopenia, unspecified; R18.8 Other ascites; K46.9 Unspecified abdominal hernia without obstruction or gangrene; R74.0 Nonspecific elevation of levels of transaminase and lactic acid dehydrogenase [LDH]; E87.1 Hypo-osmolality and hyponatremia; R79.89 Other specified abnormal findings of blood chemistry; K21.9 Gastro-esophageal reflux disease without esophagitis; I10 Essential (primary) hypertension; Z79.899 Other long term (current) drug therapy; Z88.8 Allergy status to other drugs, medicaments and biological substances
CPT/HCPCS: 36415; 74176; 76705; 80053; 80305; 81001; 83690; 85025; 96374; 96375; 96376; 99285; G0482; J2270; J2405; Q0092

== ENCOUNTER 2017-09-01 22:48 | Emergency (ER) | payer OTHER ==
[~2017-09-01] VITALS: Ht 162.6 cm; Wt 95.3 kg
[2017-09-01 22:49] VITALS: BP 125/73
--- NOTE | 2017-09-01 22:54 | NUR ---
to lobby a/w bed, elaine anthony , baron noted
--- NOTE | 2017-09-01 23:07 | NUR ---
PT AMBULATED TO BED 4
--- NOTE | 2017-09-01 23:15 | NUR ---
36O M PATIENT PRESENTS TO ED WITH WITH BILATERAL GROIN PAIN . PT STATES THAT HE WAS SEEN FOR BILATERAL HERNIAS AND HAS AN UP COMING SX DATE FOR REPAIR . DENIES N/V/D; SKIN IS PINK/WARM/DRY; AAOX4 WITH EVEN AND STEADY GAIT; LUNGS CLEAR BL; HR EVEN AND REGULAR; PT DENIES ANY FEVER, CP, SOB, OR COUGH AT THIS TIME; PATIENT STATES PAIN OF 8/10 AT THIS TIME; VSS; PATIENT POSITIONED FOR COMFORT; HOB ELEVATED; BEDRAILS UP X2; BED DOWN. ER MD MADE AWARE OF PT STATUS.
[2017-09-01] MEDS ORDERED: KETOROLAC 60 MG/2 ML VIAL IM ONE (23:45)
[2017-09-02 00:12] VITALS: BP 144/74
== END 2017-09-02 00:12 | disposition home or self-care (01) ==
LOC: MED 22:48
DX: R10.31 Right lower quadrant pain (principal); K21.9 Gastro-esophageal reflux disease without esophagitis; I10 Essential (primary) hypertension; Z88.6 Allergy status to analgesic agent; Z79.899 Other long term (current) drug therapy
CPT/HCPCS: 96372; 99283; J1885

== ENCOUNTER 2017-10-06 05:30 | Emergency (ER) | payer OTHER ==
[~2017-10-06] VITALS: Ht 154.9 cm; Wt 91.3 kg
[2017-10-06 05:38] VITALS: BP 144/95
--- NOTE | 2017-10-06 06:00 | NUR ---
36Y M TO ER WITH CRAMPING RIGHT ABDOMINAL PAIN 11/18. PATIENT REPORTED HE VOMIT 1 TIME BEFORE HE CAME TO ER. HE TRIED TO HAVE BOWEL MOVEMENT BUT IT DOES NOT COME AND PATIENT GET ABDOMINAL PAIN. HX OF GERD, HTN, RENAL DISEASE. ON 09/09/17 PATIENT GOT INGUINAL HERNIA REPAIR SURGERY FROM [facility]. SURGICAL INCISIONS ON ABDOMEN WITH DRESSING. HE HAD LAST BOWEL MOVEMENT ON 10/04/17. ER AWARE. Addendum: 10/06/17 at 0626 by JD HX OF LIVER CIRRHOSIS
--- NOTE | 2017-10-06 07:05 | NUR ---
OBTAINED REPORT FROM AM SHIFT NURSE, PT IS AAOX4, STILL C/O ABD PAIN 01/19, VSS AT THIS TIME, WILL CONTINUE TO MONITOR.
--- NOTE | 2017-10-06 07:10 | NUR ---
Patient being evaluated by physician at bedside.
[2017-10-06] MEDS ORDERED: MORPHINE SULFATE 4 MG/ML SYR IM ONE (07:15)
[2017-10-06 09:15] VITALS: BP 136/88
--- NOTE | 2017-10-06 09:15 | NUR ---
Patient discharged with v/s stable. Written and verbal after care instructions given and explained. Patient alert, oriented and verbalized understanding of instructions. Ambulatory with steady gait. All questions addressed prior to discharge. ID band removed. Patient advised to follow up with PMD. Rx of MOM given. Patient educated on indication of medication including possible reaction and side effects. Opportunity to ask questions provided and answered.
== END 2017-10-06 09:15 | disposition home or self-care (01) ==
LOC: MED 05:30
DX: K59.00 Constipation, unspecified (principal); K21.9 Gastro-esophageal reflux disease without esophagitis; I10 Essential (primary) hypertension; F15.10 Other stimulant abuse, uncomplicated; Z79.899 Other long term (current) drug therapy; Z88.8 Allergy status to other drugs, medicaments and biological substances
CPT/HCPCS: 74018; 96372; 99283; J2270

== ENCOUNTER 2017-12-16 04:55 | Emergency (ER) | payer OTHER ==
[~2017-12-16] VITALS: Ht 162.6 cm; Wt 95.3 kg
[2017-12-16 05:02] VITALS: BP 110/55
[2017-12-16] MEDS ORDERED: MORPHINE SULFATE 4 MG/ML SYR IM ONE (05:20)
[2017-12-16 05:50] VITALS: BP 130/76
== END 2017-12-16 05:50 | disposition home or self-care (01) ==
LOC: MED 04:55
DX: R10.9 Unspecified abdominal pain (principal); K21.9 Gastro-esophageal reflux disease without esophagitis; I10 Essential (primary) hypertension; Z88.6 Allergy status to analgesic agent; Z79.899 Other long term (current) drug therapy
CPT/HCPCS: 96372; 99283; J2270

== ENCOUNTER 2017-12-18 07:17 | Day surgery (SDC) | payer OTHER ==
[~2017-12-18] VITALS: Ht 162.6 cm; Wt 90.7 kg
[2017-12-18] MEDS ORDERED: LIDOCAINE VISCOUS 2% 20 ML UDC ONE (09:57)
== END 2017-12-18 10:50 | disposition home or self-care (01) ==
LOC: MDS 07:17 → MMU 07:17 → MDS 10:50
PROVIDERS: ATTEND Internal Medicine Gastroenterology
DX: K29.70 Gastritis, unspecified, without bleeding (principal); K26.9 Duodenal ulcer, unspecified as acute or chronic, without hemorrhage or perforation; K31.89 Other diseases of stomach and duodenum; Z88.6 Allergy status to analgesic agent; I10 Essential (primary) hypertension; K21.9 Gastro-esophageal reflux disease without esophagitis; Z79.899 Other long term (current) drug therapy; F15.90 Other stimulant use, unspecified, uncomplicated; F41.8 Other specified anxiety disorders; F10.21 Alcohol dependence, in remission; Z98.890 Other specified postprocedural states; Z83.3 Family history of diabetes mellitus
CPT/HCPCS: 36415; 86677

== ENCOUNTER 2017-12-27 20:42 | Inpatient (IN) | payer OTHER ==
[~2017-12-27] VITALS: Ht 162.6 cm; Wt 90.7 kg
[2017-12-27 20:48] VITALS: BP 123/88
--- NOTE | 2017-12-27 20:50 | NUR ---
TO LOBBY, AMBULATORY, A/W BED, CAMMY HARPER NOTED
--- NOTE | 2017-12-27 21:16 | NUR ---
PT C/O NAUSEA, HEADACHE, GEN WEAKNESS PAST FEW DAYS. DENIES CP/SOB. NO OTHER COMPLAINTS. A/OX4 ON ARRIVAL GCS 15. PT HAS STEADY GAIT AND NO EVIDENCE OF INJURY. HEADACHE PAIN 5/10 ACHING
[2017-12-27] MEDS ORDERED: LACTULOSE 20 GM/30 ML UDC PO ONE (23:05)
[2017-12-27 23:34] LABS: BASOPHILS % (AUTO) 0.3 % (0.0-2.0); EOSINOPHILS # (AUTO) 0.1 K/uL (0-0.4); EOSINOPHILS % (AUTO) 1.2 % (0.0-4.0); HEMATOCRIT 39.7 % (36-52); HEMOGLOBIN 13.1 g/dL (12.0-18.0); LYMPHOCYTES # (AUTO) 1.4 K/uL (2.0-11.5); LYMPHOCYTES % (AUTO) 33.4 % (20.5-51.1); MEAN CORPUSCULAR HEMOGLOBIN 32 pg (27-31); MEAN CORPUSCULAR HGB CONC 33 g/dL (33-37); MEAN CORPUSCULAR VOLUME 98.1 fL (80-94); MONOCYTES # (AUTO) 0.4 K/uL (0.8-1.0); MONOCYTES % (AUTO) 8.8 % (1.7-9.3); NEUTROPHILS # (AUTO) 2.4 K/uL (1.8-7.7); NEUTROPHILS % (AUTO) 56.3 % (42.2-75.2); RED BLOOD CELL COUNT(AUTO) 4.05 MIL/uL (4.20-6.10); RED CELL DISTRIBUTION WIDTH 15.4 % (11.6-13.7); WHITE BLOOD COUNT (AUTO) 4.3 K/uL (4.8-10.8)
[2017-12-27 23:40] LABS: APPEARANCE,URINE CLEAR (CLEAR); BILIRUBIN,URINE NEGATIVE (NEGATIVE); BLOOD, URINE TRACE-L (NEGATIVE); COLOR,URINE YELLOW (YELLOW); LEUKOCYTE ESTERASE ,URINE NEGATIVE (NEGATIVE); NITRITE, URINE NEGATIVE (NEGATIVE); UGLUCOSE NEGATIVE (NEGATIVE)
--- NOTE | 2017-12-27 23:40 | NUR ---
EKG PERFORMED AT BEDSIDE WITH PT COVERED IN GOWN
[2017-12-27 23:49] LABS: BARBITURATE, URINE NEG. ng/ml (NEG <=200); BENZODIAZEPINE, URINE NEG. ng/mL (NEG <=200); CANNABINOID, URINE POS. ng/mL (NEG <=50); COCAINE, URINE NEG. ng/mL (NEG <=300); OPIATE, URINE NEG. ng/mL (NEG <=2000); PHENCYCLIDINE SCREEN,URINE NEG. ng/mL (NEG <=25)
[2017-12-27 23:52] LABS: PLATELET COUNT (AUTO) 54 K/uL (140-450)
[2017-12-27 23:54] LABS: ANION GAP 11.2 (8-16); CARBON DIOXIDE 25.5 mmol/L (21-32); CHLORIDE 105 mmol/L (98-107); CREATININE 0.8 mg/dL (0.7-1.3); GFR ARICAN-AMERICAN 138 mL/min (>90); GLUCOSE 85 mg/dL (74-106); POTASSIUM 3.7 mmol/L (3.5-5.1); SODIUM SERUM 138 mmol/L (136-145); UREA NITROGEN, BLOOD 13 mg/dL (7-18)
[2017-12-28] LABS: ALBUMIN 3.1 g/dL (3.4-5.0); ASPARTATE AMINOTRANSFERASE 38 U/L (15-37); TOTAL BILIRUBIN 2.5 mg/dL (0.0-1.0)
[2017-12-28] LABS: RBC,URINE 0-5 (RARE) /HPF (0-5); WBC,URINE NONE SEEN /HPF (0-5)
[2017-12-28] MEDS ORDERED: MORPHINE SULFATE 2 MG/ML SYR IVP PRN (02:25)
--- NOTE | 2017-12-28 03:11 | NUR ---
RECEIVED BEDSIDE REPORT FROM RN TEE, PT AWAKE, ABLE TO FOLLOW SIMPLE COMMANDS, IV IN RIGHT HAND 24 G. SCD APPLIED, ON RA, V/S TAKEN ALL WITHIN NORMAL LIMITS, UPDATED BOARD, CALL LIGHT WITHIN REACH WILL CONTINUE TO MONITOR.
--- NOTE | 2017-12-28 03:11 | NUR ---
Patient will be admitted to care of DR GARCIA. Admitted to tele. Will go to [id number]. Belongings list completed. Report to FANNIE DE LA CRUZ.
[2017-12-28 04:00] VITALS: BP 120/75
[2017-12-28] MEDS ORDERED: LACTULOSE 20 GM/30 ML UDC PO ONE (05:00)
--- NOTE | 2017-12-28 05:00 | NUR ---
EXPLAINED DUE MEDICATION, QUESTIONS ANSWERED CALL LIGHT WITH IN REACH.
--- NOTE | 2017-12-28 07:30 | NUR ---
ENDORSED PT TO DAY SHIFT NURSE HARJINDER PT STABLE.
--- NOTE | 2017-12-28 07:35 | NUR ---
RECEIVED REPORT FROM HOTEL SERVICE SUPERVISOR RN. PT IN STABLE CONDITION. PT ON OBSERVATION. SKIN INTACT. SCD IN PLACE BUT PT IS AMBULATORY. NO COMPLAINTS OF PAIN OR DISCOMFORT. AAO X4 AT THIS TIME. IV SITE PATENT AND ASYMPTOMATIC. ALL SAFETY PRECAUTIONS IN PLACE, WILL CONTINUE TO MONITOR.
[2017-12-28 08:00] VITALS: BP 121/66
--- NOTE | 2017-12-28 09:41 | NUR ---
PHARMACY DOES NOT HAVE RATE ORDERED FOR NS IVF. SPOKE WITH DR. GARCIA. TO PUT IN RATE FOR IVF.
[2017-12-28] MEDS ORDERED: THIAMINE 100 MG TAB PO SCH (11:00)
[2017-12-28] MEDS ORDERED: NADOLOL 20 MG TAB PO SCH (11:00)
[2017-12-28] MEDS ORDERED: FOLIC ACID 1 MG TAB PO SCH (11:00)
[2017-12-28] MEDS: NACL 0.9% 1,000 ML IV SCH ×2 (12:06→15:42)
--- NOTE | 2017-12-28 12:06 | NUR ---
NORMAL SALINE 1000 ML BAG ADMINISTERED AT 1206. RATE ORDERED IS 75 ML/HOUR.
--- NOTE | 2017-12-28 13:10 | NUR ---
PT SEEN AMBULATING TO BATHROOM WITH STEADY GAIT.
--- NOTE | 2017-12-28 14:36 | NUR ---
PT STATES THAT HE IS "FEELING MUCH BETTER THAN YESTERDAY". DENIES PAIN, NAUSEA, DIZZINESS, AND OTHER DISCOMFORT AT THIS TIME. WILL CONTINUE TO MONITOR.
[2017-12-28 16:00] VITALS: BP 114/66
--- NOTE | 2017-12-28 17:07 | NUR ---
PT INQUIRING ABOUT AMMONIA LEVELS. TOLD PATIENT THAT AMMONIA WILL BE DRAWN TOMORROW IN THE AM.
--- NOTE | 2017-12-28 19:09 | NUR ---
ENDORSED PLAN OF CARE TO FARM ADVISER RN. PT IN STABLE CONDITION.
--- NOTE | 2017-12-28 19:09 | NUR ---
RECEIVED BEDSIDE REPORT FROM FANNIE GRANDE. PT IN BED, FAMILY AT BEDSIDE, IV IN RIGHT HAND 24 G PATENT INFUSING NACL @ 75 ML/HR. PT AWAKE AND ABLE TO MAKE NEEDS KNOWN, UPDATED BOARD, CALL LIGHT WITHIN REACH. BED IN LOWEST POSITION WILL CONTINUE TO MONITOR.
--- NOTE | 2017-12-28 19:22 | NUR ---
PAGED DR GARCIA REGARDING TO CONTINUE PTS LASIX, ALDACTONE, AND NADOLOL.
--- NOTE | 2017-12-28 19:47 | NUR ---
CALL FROM DR HENRIQUEZ. ORDERS FOR LASIX 40 MG PO DAILY, ALDACTONE 25 MG PO DAILY, NADOLOL 20 MG PO DAILY. MEDICATIONS SCHEDULED FOR 12/29/17 AT 0900. WILL PUT IN ORDERS.
--- NOTE | 2017-12-28 20:32 | NUR ---
PT C/O FEELING ANXIOUS AND NAUSEAS WILL MEDICATE ACCORDING TO MD ORDER.
[2017-12-28] MEDS: ONDANSETRON 4 MG/2 ML VIAL IVP PRN (20:41)
[2017-12-28] MEDS: LORazepam 2 MG/ML VIAL IVP PRN (20:42)
--- NOTE | 2017-12-28 20:42 | NUR ---
PT LEFT TO OR WITH FANNIE RABAGO PT STABLE. Addendum: 12/28/17 at 2054 by Rehana Ruiz RN WRONG PT. DISREGARD.
--- NOTE | 2017-12-28 23:52 | NUR ---
PT SLEEPING IN BED NO SIGNS OF DISTRESS. CALL LIGHT WITHIN REACH WILL CONTINUE TO MONITOR.
[2017-12-29] VITALS: BP 118/68
[2017-12-29] MEDS: NACL 0.9% 1,000 ML IV SCH ×2 (05:02→18:22)
--- NOTE | 2017-12-29 05:30 | NUR ---
IV IN RIGHT HAND HURTS PT. D/C IV, CATH INTACT. WILL CONTINUE TO MONITOR.
--- NOTE | 2017-12-29 07:00 | NUR ---
ER NURSE STARTED NEW IV IN LEFT HAND 24 G.
--- NOTE | 2017-12-29 07:25 | NUR ---
ENDORSED PT TO DAY SHIFT NURSE PT STABLE.
--- NOTE | 2017-12-29 07:25 | NUR ---
RECEIVED REPORT FROM NIGHTSHIFT NURSE AT BEDSIDE. PATIENT HAS AN IV NOTED ON HIS LEFT HAND 24G RUNNING NORMAL SALINE. NO DISTRESS NOTED. NO PAIN NOTED. PATIENT IS ON STRICT INTAKE AND OUTPUT. PATIENT IS AWARE. PATIENT IS ALERT AND ORIENTED X4. UPDATED BOARD IN PATIENT'S ROOM. LOWERED BED TO LOWEST SETTING. WILL CONTINUE TO MONITOR PATIENT.
[2017-12-29 07:44] LABS: BASOPHILS % (AUTO) 0.2 % (0.0-2.0); EOSINOPHILS # (AUTO) 0.1 K/uL (0-0.4); EOSINOPHILS % (AUTO) 1.5 % (0.0-4.0); HEMATOCRIT 38.5 % (36-52); HEMOGLOBIN 12.8 g/dL (12.0-18.0); LYMPHOCYTES # (AUTO) 1.1 K/uL (2.0-11.5); MEAN CORPUSCULAR HEMOGLOBIN 33 pg (27-31); MEAN CORPUSCULAR HGB CONC 33 g/dL (33-37); MEAN CORPUSCULAR VOLUME 98.1 fL (80-94); MONOCYTES # (AUTO) 0.4 K/uL (0.8-1.0); MONOCYTES % (AUTO) 10.5 % (1.7-9.3); NEUTROPHILS # (AUTO) 2.1 K/uL (1.8-7.7); NEUTROPHILS % (AUTO) 57.8 % (42.2-75.2); PLATELET COUNT (AUTO) 52 K/uL (140-450); RED BLOOD CELL COUNT(AUTO) 3.92 MIL/uL (4.20-6.10); RED CELL DISTRIBUTION WIDTH 15.1 % (11.6-13.7); WHITE BLOOD COUNT (AUTO) 3.7 K/uL (4.8-10.8)
[2017-12-29 08:00] VITALS: BP 121/71
[2017-12-29 08:19] LABS: ANION GAP 7.8 (8-16); CARBON DIOXIDE 25.5 mmol/L (21-32); CREATININE 0.8 mg/dL (0.7-1.3); POTASSIUM 4.3 mmol/L (3.5-5.1)
[2017-12-29 08:32] LABS: MAGNESIUM 1.8 mg/dL (1.8-2.4); PHOSPHORUS 3.7 mg/dL (2.5-4.9)
[2017-12-29] MEDS: FUROSEMIDE 40 MG TAB PO SCH (09:00)
[2017-12-29] MEDS ORDERED: NADOLOL 20 MG TAB PO SCH (09:00)
[2017-12-29] MEDS: NADOLOL 20 MG TAB PO SCH (09:00)
--- NOTE | 2017-12-29 09:13 | NUR ---
PATIENT HAS BEEN SCREENED AND CATEGORIZED MODERATE NUTRITION RISK. PATIENT WILL BE SEEN WITHIN 3-5 DAYS OF ADMISSION. 12/30/17 01/01/[address]
[2017-12-29] MEDS: SPIRONOLACTONE 25 MG TAB PO SCH (09:46)
[2017-12-29] MEDS: FOLIC ACID 1 MG TAB PO SCH (09:46)
--- NOTE | 2017-12-29 09:46 | NUR ---
PATIENT TOOK ALL MEDICATIONS AT THIS TIME. PATIENT TOLERATED WELL.
[2017-12-29] MEDS: THIAMINE 100 MG TAB PO SCH (09:47)
[2017-12-29] MEDS: ONDANSETRON 4 MG/2 ML VIAL IVP PRN ×2 (13:02→19:35)
--- NOTE | 2017-12-29 13:02 | NUR ---
PATIENT STARTED VOMITTING. ADMINISTERED ZOFRAN TO PATIENT VIA IV. WILL CONTINUE TO MONITOR PATIENT.
[2017-12-29] MEDS: LORazepam 2 MG/ML VIAL IVP PRN ×2 (15:56→23:59)
--- NOTE | 2017-12-29 15:56 | NUR ---
PATIENT PRESENTS WITH ANXIETY. PATIENT IS ANXIOUS AT THIS TIME. PATIENT ASKS FOR ATIVAN. ADMINISTERED ATIVAN TO PATIENT. WILL CONTINUE TO MONITOR PATIENT.
[2017-12-29 16:00] VITALS: BP 123/77
--- NOTE | 2017-12-29 17:00 | NUR ---
NO DISTRESS NOTED. WILL CONTINUE TO MONITOR PATIENT.
--- NOTE | 2017-12-29 19:22 | NUR ---
GAVE REPORT TO NIGHTSHIFT NURSE. PATIENT IN STABLE CONDITION.
--- NOTE | 2017-12-29 19:23 | NUR ---
RECEIVED BEDSIDE REPORT FROM DAY SHIFT NURSE HOMERO RN, PT STABLE, SLEEPING, NO DISTRESS NOTED, IV TO L HAND 24G PATENT, INTACT, INFUSING NS @ 75ML/HR, PT ON ROOM AIR, NO SOB, INITIAL ASSESSMENT DONE, ALL SAFETY PRECAUTION MET, WILL CONTINUE TO MONITOR.
--- NOTE | 2017-12-29 19:35 | NUR ---
PT STATED FEELING NAUSEOUS, MEDICATION PER MD ORDER GIVEN, PT TOLERATED WELL, NO DISTRESS NOTED, CALL LIGHT WITHIN REACH, WILL CONTINUE TO MONITOR.
--- NOTE | 2017-12-29 21:00 | NUR ---
PT SLEEPING, NO DISTRESS NOTED, CALL LIGHT WITHIN REACH, WILL CONTINUE TO MONITOR.
--- NOTE | 2017-12-29 23:25 | NUR ---
CHECKED ON PT, PT SLEEPING, NO DISTRESS NOTED, V/S TAKEN, WNL, CALL LIGHT WITHIN REACH, WILL CONTINUE TO MONITOR.
--- NOTE | 2017-12-29 23:59 | NUR ---
PT STATED FEELING ANXIOUS, AND STATED THAT HE IS FEELING THAT HIS HEART IS BEATING HARD, ATIVAN GIVEN PER MD ORDER FOR ANXIETY, PT TOLERATED WELL, NO DISTRESS NOTED, CALL LIGHT WITHIN REACH , WILL CONTINUE TO MONITOR.
[2017-12-30 00:09] VITALS: BP 109/61
--- NOTE | 2017-12-30 02:03 | NUR ---
PT SLEEPING, NO DISTRESS NOTED, CALL LIGHT WITHIN REACH, WILL CONTINUE TO MONITOR.
--- NOTE | 2017-12-30 04:30 | NUR ---
PT SLEEPING, NO DISTRESS NOTED, CALL LIGHT WITHIN REACH, WILL CONTINUE TO MONITOR.
--- NOTE | 2017-12-30 07:17 | NUR ---
RECEIVED REPORT FROM NIGHTSHIFT NURSE AT BEDSIDE. PATIENT IS ASLEEP AT THIS TIME IN LEFT LATERAL POSITION. PATIENT HAS AN IV NOTED ON HIS LEFT HAND WITH 75 NORMAL SALINE INFUSING. PATIENT IS AROUSABLE TO NAME. NO DISTRESS NOTED. NO PAIN NOTED. UPDATED BOARD IN PATIENT'S ROOM. LOWERED BED TO LOWEST SETTING. WILL CONTINUE TO MONITOR PATIENT.
--- NOTE | 2017-12-30 07:17 | NUR ---
ENDORSED PT TO DAY SHIFT NURSE DANIEL VALENTIN IN STABLE CONDITION, NO DISTRESS NOTED, CALL LIGHT WITHIN REACH.
[2017-12-30 07:21] LABS: ANION GAP 8.4 (8-16); CARBON DIOXIDE 23.5 mmol/L (21-32); CREATININE 0.7 mg/dL (0.7-1.3); POTASSIUM 3.9 mmol/L (3.5-5.1)
[2017-12-30] MEDS: NACL 0.9% 1,000 ML IV SCH ×2 (07:42→21:02)
[2017-12-30 08:00] VITALS: BP 111/72
[2017-12-30 08:15] LABS: BASOPHILS % (AUTO) 1.1 % (0.0-2.0); EOSINOPHILS % (AUTO) 1.1 % (0.0-4.0); HEMATOCRIT 37.2 % (36-52); HEMOGLOBIN 12.5 g/dL (12.0-18.0); LYMPHOCYTES # (AUTO) 0.9 K/uL (2.0-11.5); LYMPHOCYTES % (AUTO) 26.6 % (20.5-51.1); MEAN CORPUSCULAR HEMOGLOBIN 33 pg (27-31); MEAN CORPUSCULAR HGB CONC 34 g/dL (33-37); MEAN CORPUSCULAR VOLUME 97.5 fL (80-94); MONOCYTES # (AUTO) 0.3 K/uL (0.8-1.0); MONOCYTES % (AUTO) 9.3 % (1.7-9.3); NEUTROPHILS # (AUTO) 2.1 K/uL (1.8-7.7); NEUTROPHILS % (AUTO) 61.9 % (42.2-75.2); PLATELET COUNT (AUTO) 43 K/uL (140-450); RED BLOOD CELL COUNT(AUTO) 3.82 MIL/uL (4.20-6.10); WHITE BLOOD COUNT (AUTO) 3.4 K/uL (4.8-10.8)
[2017-12-30] MEDS: FOLIC ACID 1 MG TAB PO SCH (08:53)
[2017-12-30] MEDS: LACTULOSE 20 GM/30 ML UDC PO SCH ×3 (08:53→17:39)
[2017-12-30] MEDS: THIAMINE 100 MG TAB PO SCH (08:53)
[2017-12-30] MEDS: NADOLOL 20 MG TAB PO SCH (08:54)
[2017-12-30] MEDS: SPIRONOLACTONE 25 MG TAB PO SCH ×2 (08:54→09:21)
[2017-12-30] MEDS: FUROSEMIDE 40 MG TAB PO SCH (08:54)
--- NOTE | 2017-12-30 08:54 | NUR ---
PATIENT TOOK AM MEDICATIONS. PATIENT TOLERATED WELL.
[2017-12-30] MEDS ORDERED: RIFAXIMIN 550 MG TAB PO SCH (09:30)
--- NOTE | 2017-12-30 10:23 | NUR ---
FAXED INITIAL REVIEW TO [facility] [phone] FILIBERTO [phone]
--- NOTE | 2017-12-30 11:55 | NUR ---
PATIENT ASLEEP AT THIS TIME. WILL CONTINUE TO MONITOR PATIENT.
[2017-12-30] MEDS: ONDANSETRON 4 MG/2 ML VIAL IVP PRN (13:50)
--- NOTE | 2017-12-30 13:50 | NUR ---
PATIENT SAYS HE IS NAUSEOUS AT THIS TIME. ADMINISTERED ZOFRAN TO PATIENT VIA IV LINE.
--- NOTE | 2017-12-30 15:15 | NUR ---
Second Crusher Note: I called and spoke with Jose Angel from [facility] , address [address] [place] [address] to make a high risk clinic appt. Jose Angel requested MD's appt order to be fax to him, fax number . Per Jose Angel, he made an appt for patient on Tuesday January 02, 2018 at 9:30am. I met with patient at bedside, I provided him with appt information. Patient speaks Armenian. Addendum: 12/31/17 at 1352 by Deonna Cruz SS Late entry for 12/30/17: Patient agreed with me making him a follow up appt at [facility].
--- NOTE | 2017-12-30 15:34 | NUR ---
NO DISTRESS NOTED. WILL CONTINUE TO MONITOR PATIENT.
[2017-12-30 16:00] VITALS: BP 115/72
--- NOTE | 2017-12-30 17:00 | NUR ---
PATIENT SLEEPING AT THIS TIME. WILL CONTINUE TO MONITOR PATIENT.
--- NOTE | 2017-12-30 19:23 | NUR ---
GAVE REPORT TO NIGHTSHIFT NURSE AT BEDSIDE. PATIENT IN STABLE CONDITION.
--- NOTE | 2017-12-30 19:24 | NUR ---
RECD. RESTING IN BED, AWAKE, A/OX3, WITH FORGETFULNESS. SPEECH SLIGHTLY DELAYED. IV OF NS AT 75 ML/HR INFUSING, LEFT HAND G24. AMBULATORY TO THE . PLAN OF CARE FOR THE SHIFT DISCUSSED. VERBALIZED UNDERSTANDING. DENIES PAIN 0/10. SISTER AT THE BEDSIDE.
[2017-12-30] MEDS: LORazepam 2 MG/ML VIAL IVP PRN (21:15)
--- NOTE | 2017-12-30 21:15 | NUR ---
WITH ANXIETY, MEDICATED BY ATIVAN 2 MG. IVP BY FANNIE TAYLOR.
--- NOTE | 2017-12-30 21:45 | NUR ---
REQUESTED FOR POPSICLE TWO TIMES, GIVEN REQUESTED.
--- NOTE | 2017-12-30 21:45 | NUR ---
NO ANXIETY NOTED, RESTING COMFORTABLY IN BED.
[2017-12-30] MEDS: RIFAXIMIN 550 MG TAB PO SCH (21:48)
--- NOTE | 2017-12-30 22:00 | NUR ---
Patient's Plan of Care was discussed and reviewed with VACUUM CLOSING MACHINE OPERATOR: ADRIAN DUMONT
[2017-12-31] VITALS: BP 132/81
--- NOTE | 2017-12-31 | NUR ---
SLEEPING COMFORTABLY, NO DISTRESS NOTED.
[2017-12-31] MEDS: NACL 0.9% 1,000 ML IV SCH ×3 (00:41→21:02)
[2017-12-31] MEDS: LORazepam 2 MG/ML VIAL IVP PRN ×3 (05:22→21:02)
--- NOTE | 2017-12-31 05:22 | NUR ---
WITH ANXIETY, MEDICATED WITH ATIVAN 2 MG. IVP BY FANNIE TAYLOR.
--- NOTE | 2017-12-31 05:52 | NUR ---
NO ANXIETY NOTED, SLEEPING COMFORTABLY IN BED.
--- NOTE | 2017-12-31 07:00 | NUR ---
ABLE TO SLEEP WELL. CONDITION REMAIN STABLE. WILL ENDORSE TO AM NURSE FOR CONTINUITY OF CARE.
[2017-12-31 07:01] LABS: HEMOGLOBIN 11.7 g/dL (12.0-18.0)
[2017-12-31 07:13] LABS: HEMATOCRIT 34.3 % (36-52); MEAN CORPUSCULAR HEMOGLOBIN 33 pg (27-31); MEAN CORPUSCULAR HGB CONC 34 g/dL (33-37); MEAN CORPUSCULAR VOLUME 96.4 fL (80-94); PLATELET COUNT (AUTO) 39 K/uL (140-450); RED BLOOD CELL COUNT(AUTO) 3.55 MIL/uL (4.20-6.10); RED CELL DISTRIBUTION WIDTH 14.9 % (11.6-13.7); WHITE BLOOD COUNT (AUTO) 3.4 K/uL (4.8-10.8)
[2017-12-31 07:15] LABS: CARBON DIOXIDE 24.9 mmol/L (21-32); CREATININE 0.8 mg/dL (0.7-1.3); POTASSIUM 3.9 mmol/L (3.5-5.1)
--- NOTE | 2017-12-31 07:25 | NUR ---
ENDORSED TO AM NURSE FOR CONTINUITY OF CARE.
--- NOTE | 2017-12-31 07:26 | NUR ---
RECEIVED PT FROM PM NURSE AT THE BEDSIDE. PT SLEEPING AT THIS TIME. PT STATES HE HAS ANXIETY , ASKING IF MEDS IS ISMAEL AT THIS TIME FOR REDUCING PAIN. INFORMED THAT WILL CHECK EMR AND WILL NOTIFY HIM CALL LIGHT WITHIN REACH, IVF INFUSING WELL ON LFT HAND. NO SIGN OF DISTRESS. WILL CONTINUE TO MONITOR PT.
[2017-12-31 08:00] VITALS: BP 114/66
[2017-12-31 09:51] LABS: LYMPHOCYTES % (MANUAL) 28 % (20-46); MONOCYTES % (MANUAL) 10 % (5-12)
[2017-12-31 10:02] LABS: EOSINOPHILS % (MANUAL) 1 % (0-4)
--- NOTE | 2017-12-31 10:15 | NUR ---
ADMINISTERED MEDS TO PT ORDERED. PT TOLERATED WELL. PT COMPLAINING OF ANXIETY , ADMINISTERED ATIVAN ORDERED. HELPED PT TO GOP RESTROOM. NO SIGN OF DISTRESS. WILL CONTINUE TO MONITOR PT.
[2017-12-31] MEDS: FOLIC ACID 1 MG TAB PO SCH (10:21)
[2017-12-31] MEDS: THIAMINE 100 MG TAB PO SCH (10:21)
[2017-12-31] MEDS: SPIRONOLACTONE 25 MG TAB PO SCH (10:22)
[2017-12-31] MEDS: LACTULOSE 20 GM/30 ML UDC PO SCH ×2 (10:22→17:00)
[2017-12-31] MEDS: FUROSEMIDE 40 MG TAB PO SCH (10:22)
[2017-12-31] MEDS: NADOLOL 20 MG TAB PO SCH (10:23)
[2017-12-31] MEDS: RIFAXIMIN 550 MG TAB PO SCH ×2 (10:23→21:02)
--- NOTE | 2017-12-31 13:00 | NUR ---
CHECKED ON PT. SLEEPING AT THIS TIME. NO SIGN OF DISTRESS. CALL LIGHT WITHIN REACH . WILL CONTINUE TO MONITOR PT.
--- NOTE | 2017-12-31 15:03 | NUR ---
12/31/17 RD INITIAL ASSESSMENT COMPLETED PLEASE REFER TO NUTRITION ASSESSMENT UNDER CARE ACTIVITY FOR ESTIMATED NUTRITIONAL NEEDS. 1. CONTINUE CARDIAC DIET TOLERATED. 2. PROVIDED NUTRITION EDUCATION REGARDING ALCOHOLIC CIRRHOSIS TO PT. 3. RD TO FOLLOW-UP 5-7 DAYS, LOW RISK. RADHA WEEKS, MARIBEL
[2017-12-31 16:00] VITALS: BP 137/79
--- NOTE | 2017-12-31 17:30 | NUR ---
CHECKED ON PT. PT LYING ON BED. WANTED TO USE RESTROOM. ASSISTED HIM TO RESTROOM. NO SIGN OF DISTRESS. OFFERED BLANKET TO PT. PLACED CALL LIGHT WITHIN PT REACH. WILL CONTINUE TO MONITOR PT.
--- NOTE | 2017-12-31 18:00 | NUR ---
MISSED DOSE OF LACTULAOSE FOR PT , ATTENDING OTHER PT.
--- NOTE | 2017-12-31 19:25 | NUR ---
PT ENDORSED TO PM NURSE. PT IN STABLE CONDITION.
--- NOTE | 2017-12-31 19:25 | NUR ---
RECEIVED PT REPORT FROM DAY SHIFT NURSE AT BEDSIDE. PT IN STABLE CONDITION. FAMILY IS AT BEDSIDE. PT IS A/O X4. IV ACCESS IN L HAND 22G IVF NOT CURRENTLY INFUSING, WILL BEGIN NO BAG OF FLUIDS. IV IS PATENT AND INTACT. SKIN IS INTACT. PT HAS NO C/O PAIN AT THIS TIME. BED IS LOCKED, LOW POSITION WITH SIDE RAILS UP X2. BOARD IS UPDATED. CALL LIGHT WITHIN REACH. WILL CONTINUE TO MONITOR PT.
--- NOTE | 2017-12-31 21:02 | NUR ---
PT C/O ANXIETY. ATIVAN GIVEN. WILL CONTINUE TO MONITOR.
--- NOTE | 2017-12-31 21:03 | NUR ---
NEW BAG OF IVF STARTED. ALL PT NEEDS ARE MET AT THIS TIME. WILL CONTINUE TO MONITOR.
--- NOTE | 2017-12-31 22:59 | NUR ---
PT ASLEEP IN BED NO S/SX OF DISTRESS. WILL CONTINUE TO MONITOR.
[2018-01-01] VITALS: BP 123/79
--- NOTE | 2018-01-01 00:39 | NUR ---
PT AWAKE AND ASKING FOR SNACK. SNACK GIVEN. ALL OTHER PT NEEDS ARE MET AT THIS TIME. WILL CONTINUE TO MONITOR.
--- NOTE | 2018-01-01 02:50 | NUR ---
PT ASLEEP IN BED. NO SIGNS OF DISTRESS. WILL CONTINUE TO MONITOR.
--- NOTE | 2018-01-01 04:36 | NUR ---
PT ASLEEP IN BED. NO SIGNS OF DISTRESS. WILL CONTINUE TO MONITOR.
--- NOTE | 2018-01-01 06:40 | NUR ---
NEW IV ACCESS STARTED IN L FA 22G. OTHER IV DC'D CANULA INTACT AND PATENT.
--- NOTE | 2018-01-01 07:11 | NUR ---
ENDORSED PT TO DAY SHIFT NURSE FOR CONTINUITY OF CARE. PT IN STABLE CONDITION.
[2018-01-01 07:54] VITALS: BP 122/71
[2018-01-01] MEDS: LACTULOSE 20 GM/30 ML UDC PO SCH ×2 (09:02→13:27)
[2018-01-01] MEDS: LORazepam 2 MG/ML VIAL IVP PRN (09:03)
[2018-01-01] MEDS: FOLIC ACID 1 MG TAB PO SCH (09:03)
[2018-01-01] MEDS: FUROSEMIDE 40 MG TAB PO SCH (09:04)
[2018-01-01] MEDS: THIAMINE 100 MG TAB PO SCH (09:04)
[2018-01-01] MEDS: SPIRONOLACTONE 25 MG TAB PO SCH (09:04)
[2018-01-01] MEDS: RIFAXIMIN 550 MG TAB PO SCH (09:05)
[2018-01-01] MEDS: NADOLOL 20 MG TAB PO SCH (09:05)
[2018-01-01] MEDS ORDERED: LACT10SO11 PO (12:33)
[2018-01-01] MEDS ORDERED: PNEUMOCOCCAL VACCINE 23 MCG/0.5 ML VIAL IMVAC SCH (13:15)
--- NOTE | 2018-01-01 13:32 | NUR ---
CONCURRENT REVIEW FAXED TO [facility] [phone]
--- NOTE | 2018-01-01 13:49 | NUR ---
Link And Link Knitting Machine Operator Note: Late entry for 12/30/17: I faxed 's appt order to [facility], fax number
--- NOTE | 2018-01-01 13:50 | NUR ---
PT LEFT THE HOSPITAL WITH ALL HIS BELONGINGS AND THE DISCHARGE PACKET. PT ACCOMPANIED BY BROTHER, WALKED ON OWN . PT IN STABLE CONDITION. INFORMED HIM TO VISIT [facility] TOMORROW OR WITHIN 1 WK OF DC. VERBALIZED UNDERSTANDING. PT PROVIDED WITH VERBAL AND WRITTEN DC INSTRUCTION.
--- NOTE | 2018-01-01 14:32 | NUR ---
Cafeteria Associate Note: I faxed 's appt order to [facility]
== END 2018-01-01 13:30 | disposition home or self-care (01) | DRG 279 ==
LOC: MED 20:42 → UNDOADMOB 12-28 02:22 → MTU 12-28 02:22 → UNDOADMOB 12-28 11:22 → MTU 12-28 11:22 → OBSVTOIN 12-28 11:26 → INTOOBSV 12-28 11:26
PROVIDERS: ADMIT Internal Medicine; ATTEND Internal Medicine
PROC: 3E0234Z Introduction of Serum, Toxoid and Vaccine into Muscle, Percutaneous Approach (ICD-10-PCS; principal; 2018-01-01)
DX: K72.90 Hepatic failure, unspecified without coma (principal); E44.0 Moderate protein-calorie malnutrition; E72.20 Disorder of urea cycle metabolism, unspecified; K76.6 Portal hypertension; D69.6 Thrombocytopenia, unspecified; F12.90 Cannabis use, unspecified, uncomplicated; K70.30 Alcoholic cirrhosis of liver without ascites; Z68.34 Body mass index [BMI] 34.0-34.9, adult; Z88.6 Allergy status to analgesic agent; Z79.1 Long term (current) use of non-steroidal anti-inflammatories (NSAID); Z79.899 Other long term (current) drug therapy; Z23 Encounter for immunization
CPT/HCPCS: 99285; G0378; 36415; 71045; 80048; 80053; 80305; 81001; 82140; 83735; 84100; 84484; 85025; 85610; 85730; 87081; 90732; 93005; G0482; J2060; J2405; J7030; Q0092

== ENCOUNTER 2018-04-29 22:16 | Emergency (ER) | payer OTHER ==
[~2018-04-29] VITALS: Ht 162.6 cm; Wt 91.2 kg
[~2018-04-29 22:16] MED LIST changes: -ACET-5629 PO
[2018-04-29 22:19] VITALS: BP 129/66
--- NOTE | 2018-04-29 22:22 | NUR ---
TO LOBBY A/W BED,AMBULATORY, VSS ERMD NOTED
--- NOTE | 2018-04-29 22:45 | NUR ---
PT BIB SELF C/O RLQ PAIN FOR PAST 15 DAYS. PT DENIES N/V/D. ABD IS ROUND , SOFT, NON TENDER, ACITVE BS X4. PT HAS LAURA OF LIVER CIRRHOSIS, INTESTINAL INFECTION, AND SWELLING OF TESTICLES. PT IS LAYING IN BED, APPEARS TO BE IN NO ACUTE DISTRESS.
--- NOTE | 2018-04-29 23:00 | NUR ---
PT TAKEN TO BED 9
--- NOTE | 2018-04-29 23:22 | NUR ---
PT TAKEN TO XRAY
--- NOTE | 2018-04-29 23:34 | NUR ---
PT RETURN FROM XRAY
[2018-04-29] MEDS ORDERED: IBUPROFEN 800 MG TAB PO ONE (23:50)
[2018-04-29 23:55] LABS: BASOPHILS % (AUTO) 0.3 % (0.0-2.0); EOSINOPHILS % (AUTO) 1.2 % (0.0-4.0); HEMOGLOBIN 11.6 g/dL (12.0-18.0); LYMPHOCYTES # (AUTO) 1.1 K/uL (2.0-11.5); LYMPHOCYTES % (AUTO) 33.4 % (20.5-51.1); MEAN CORPUSCULAR HEMOGLOBIN 32 pg (27-31); MEAN CORPUSCULAR HGB CONC 32 g/dL (33-37); MEAN CORPUSCULAR VOLUME 99.8 fL (80-94); MONOCYTES # (AUTO) 0.3 K/uL (0.8-1.0); MONOCYTES % (AUTO) 9.7 % (1.7-9.3); NEUTROPHILS # (AUTO) 1.9 K/uL (1.8-7.7); NEUTROPHILS % (AUTO) 55.4 % (42.2-75.2); PLATELET COUNT (AUTO) 51 K/uL (140-450); RED BLOOD CELL COUNT(AUTO) 3.61 MIL/uL (4.20-6.10); RED CELL DISTRIBUTION WIDTH 16.4 % (11.6-13.7); WHITE BLOOD COUNT (AUTO) 3.4 K/uL (4.8-10.8)
[2018-04-30 00:09] LABS: ANION GAP 10.1 (8-16); CARBON DIOXIDE 26.9 mmol/L (21-32)
--- NOTE | 2018-04-30 00:12 | NUR ---
Dr. Dick evaluating patient at bedside.
[2018-04-30 00:14] LABS: ALBUMIN 2.5 g/dL (3.4-5.0); TOTAL BILIRUBIN 1.7 mg/dL (0.0-1.0)
[2018-04-30 00:52] VITALS: BP 118/69
--- NOTE | 2018-04-30 00:53 | NUR ---
Patient discharged with v/s stable. Written and verbal after care instructions given and explained. Patient alert, oriented and verbalized understanding of instructions. Ambulatory with steady gait. All questions addressed prior to discharge. ID band removed. Patient advised to follow up with PMD. Rx of MOTRIN, LACTULOSE, MINERAL OIL given. Patient educated on indication of medication including possible reaction and side effects. Opportunity to ask questions provided and answered.
== END 2018-04-30 00:53 | disposition home or self-care (01) ==
LOC: MED 22:16
DX: K59.09 Other constipation (principal); I10 Essential (primary) hypertension; K21.9 Gastro-esophageal reflux disease without esophagitis; Z88.6 Allergy status to analgesic agent; N28.9 Disorder of kidney and ureter, unspecified; Z79.899 Other long term (current) drug therapy
CPT/HCPCS: 36415; 74022; 80053; 81002; 83690; 85025; 99284

== ENCOUNTER 2018-08-01 13:03 | Emergency (ER) | payer OTHER ==
[~2018-08-01] VITALS: Ht 162.6 cm; Wt 91.2 kg
[2018-08-01 13:10] VITALS: BP 136/81
--- NOTE | 2018-08-01 13:15 | NUR ---
PT BEDSIDE TRIAGED IN BED 12, REPORT TO RAVI GRECO
--- NOTE | 2018-08-01 13:20 | NUR ---
PT BIB SELF C/O R TESTICULAR SWELLING STARTING THIS AM, 8 ACHING PAIN, DENIES NVD. SWLLING NOTED TO RT TESTICLE. DENIES PAIN UPON PALPATION. STATES THIS HAPPENED ONCE BEFORE AND HE WAS TREATED WITH ANTIBIOTICS.
[2018-08-01 13:45] VITALS: BP 136/81
--- NOTE | 2018-08-01 13:45 | NUR ---
Patient discharged with v/s stable. Written and verbal after care instructions given and explained. Patient alert, oriented and verbalized understanding of instructions. Ambulatory with steady gait. All questions addressed prior to discharge. ID band removed. Patient advised to follow up with PMD. Rx of Naprosyn, Cipro given. Patient educated on indication of medication including possible reaction and side effects. Opportunity to ask questions provided and answered.
== END 2018-08-01 13:45 | disposition home or self-care (01) ==
LOC: MED 13:03
DX: N45.1 Epididymitis (principal); I10 Essential (primary) hypertension; K21.9 Gastro-esophageal reflux disease without esophagitis; K70.30 Alcoholic cirrhosis of liver without ascites; Z88.6 Allergy status to analgesic agent; Z79.899 Other long term (current) drug therapy
CPT/HCPCS: 99283

== ENCOUNTER 2018-08-09 23:47 | Emergency (ER) | payer OTHER ==
[~2018-08-09] VITALS: Ht 162.6 cm; Wt 90.7 kg
[2018-08-09 23:59] VITALS: BP 134/73
--- NOTE | 2018-08-10 00:01 | NUR ---
[facility] #02 AMBULATORY, REPORT GIVEN TO ERMA GRECO
--- NOTE | 2018-08-10 00:01 | NUR ---
PT PRESENTS TO ED WITH RUQ ABD PAIN, 6/10, NAUSEA WTIHOUT VOMITING, CONSTIPATION, AND FEELING BLOATED X5 DAYS. X4 QUADRANT BOWEL SOUNDS PRESENT. NO ENLARGMENT FELT IN RUQ. NO REBOUND TENDERNESS. BILAT EYE CONJUNTIVA YELLOW. BILAT LOWER EXTREMITY, 2 TO 3+ PITTING EDEMA. HX OF CIRRHOSIS X5 YEARS. A&OX4. VSS. POSITIONED IN BED WITH HOB ELEVATED. X1 RAIL UP. ACCOMPANIED BY MOTHER. ER MD AWARE. CONTINUE TO MONITOR.
[2018-08-10] MEDS ORDERED: ONDANSETRON 4 MG ODT PO ONE (00:15)
[2018-08-10 00:30] LABS: BASOPHILS % (AUTO) 0.3 % (0.0-2.0); EOSINOPHILS # (AUTO) 0.1 K/uL (0-0.4); EOSINOPHILS % (AUTO) 3.1 % (0.0-4.0); HEMATOCRIT 34.3 % (36-52); HEMOGLOBIN 11.5 g/dL (12.0-18.0); LYMPHOCYTES # (AUTO) 1.2 K/uL (2.0-11.5); LYMPHOCYTES % (AUTO) 31.8 % (20.5-51.1); MEAN CORPUSCULAR HEMOGLOBIN 33 pg (27-31); MEAN CORPUSCULAR HGB CONC 33 g/dL (33-37); MEAN CORPUSCULAR VOLUME 98.1 fL (80-94); MONOCYTES # (AUTO) 0.4 K/uL (0.8-1.0); MONOCYTES % (AUTO) 9.6 % (1.7-9.3); NEUTROPHILS # (AUTO) 2.1 K/uL (1.8-7.7); NEUTROPHILS % (AUTO) 55.2 % (42.2-75.2); WHITE BLOOD COUNT (AUTO) 3.8 K/uL (4.8-10.8)
[2018-08-10 00:39] LABS: ANION GAP 8.3 (8-16); CARBON DIOXIDE 25.2 mmol/L (21-32); POTASSIUM 3.5 mmol/L (3.5-5.1)
[2018-08-10 00:45] LABS: ALBUMIN 2.3 g/dL (3.4-5.0); TOTAL BILIRUBIN 1.9 mg/dL (0.0-1.0)
[2018-08-10 00:52] LABS: APPEARANCE,URINE CLEAR (CLEAR); BILIRUBIN,URINE NEGATIVE (NEGATIVE); BLOOD, URINE 1+ (NEGATIVE); COLOR,URINE YELLOW (YELLOW); LEUKOCYTE ESTERASE ,URINE NEGATIVE (NEGATIVE); NITRITE, URINE NEGATIVE (NEGATIVE); UGLUCOSE NEGATIVE (NEGATIVE)
[2018-08-10 01:01] LABS: BARBITURATE, URINE NEG. ng/ml (NEG <=200); BENZODIAZEPINE, URINE NEG. ng/mL (NEG <=200); CANNABINOID, URINE POS. ng/mL (NEG <=50); COCAINE, URINE NEG. ng/mL (NEG <=300); OPIATE, URINE NEG. ng/mL (NEG <=2000); PHENCYCLIDINE SCREEN,URINE NEG. ng/mL (NEG <=25)
[2018-08-10 01:04] LABS: RBC,URINE 0-5 /HPF (0-5); WBC,URINE 0-5 /HPF (0-5)
[2018-08-10 01:12] LABS: PLATELET COUNT (AUTO) 53 K/uL (140-450)
[2018-08-10] MEDS ORDERED: MORPHINE SULFATE 4 MG/ML SYR IM ONE (01:15)
--- NOTE | 2018-08-10 01:30 | NUR ---
US AT BEDSIDE.
--- NOTE | 2018-08-10 01:40 | NUR ---
Pt states no nausea. VSS. Continue to monitor.
--- NOTE | 2018-08-10 01:45 | NUR ---
ESCORTED TO CT BY TECH.
--- NOTE | 2018-08-10 02:30 | NUR ---
Pt states pain reduced /. VSS. Continue to monitor.
[2018-08-10 02:42] VITALS: BP 122/67
--- NOTE | 2018-08-10 02:42 | NUR ---
Pt discharged. RUQ abd pain reduced to 2/10. No n/v. Instructed to f/u with PCP. VSS. Verbalized understanding of DC instructions. All qestions answered.
== END 2018-08-10 02:42 | disposition home or self-care (01) ==
LOC: MED 23:47
DX: K74.60 Unspecified cirrhosis of liver (principal); D61.818 Other pancytopenia; R74.0 Nonspecific elevation of levels of transaminase and lactic acid dehydrogenase [LDH]; K21.9 Gastro-esophageal reflux disease without esophagitis; I10 Essential (primary) hypertension; Z88.6 Allergy status to analgesic agent; Z79.899 Other long term (current) drug therapy
CPT/HCPCS: 36415; 74176; 76705; 80053; 80305; 81001; 82140; 83690; 85025; 96372; 99284; J2270; Q0092; Q0162

== ENCOUNTER 2018-08-11 21:16 | Emergency (ER) | payer OTHER ==
[~2018-08-11] VITALS: Ht 162.6 cm; Wt 90.7 kg
[2018-08-11 21:27] VITALS: BP 151/80
--- NOTE | 2018-08-11 21:29 | NUR ---
TO LOBBY A/W BED, CAMMY BORGES NOTED
--- NOTE | 2018-08-11 23:09 | NUR ---
PT AMBULATED TO BED 2
--- NOTE | 2018-08-11 23:09 | NUR ---
CAME IN WITH C/O RIGHT SIDE ABDOMINAL PAIN X 4 DAYS. ABD SOFT, NONTENDER, NORMOACTIVE X4. REPORTS N/V, DENIES HEMATEMESIS. LUNGS CTAB, RESPIRATIONS EVEN AND UNLABORED. +2 PITTING EDEMA TO BLE, PT REPORTS COMPLIANCE TO MEDICATIONS. REPORTS HISTORY OF CIRRHOSIS, HTN, RENAL DISEASE, GERD
[2018-08-11] MEDS ORDERED: FUROSEMIDE 40 MG/4 ML VIAL IVP ONE (23:35)
[2018-08-11 23:52] LABS: BASOPHILS % (AUTO) 0.4 % (0.0-2.0); EOSINOPHILS # (AUTO) 0.1 K/uL (0-0.4); EOSINOPHILS % (AUTO) 1.8 % (0.0-4.0); HEMATOCRIT 36.1 % (36-52); LYMPHOCYTES # (AUTO) 0.8 K/uL (2.0-11.5); LYMPHOCYTES % (AUTO) 24.1 % (20.5-51.1); MEAN CORPUSCULAR HEMOGLOBIN 32 pg (27-31); MEAN CORPUSCULAR HGB CONC 33 g/dL (33-37); MEAN CORPUSCULAR VOLUME 97.8 fL (80-94); MONOCYTES # (AUTO) 0.3 K/uL (0.8-1.0); MONOCYTES % (AUTO) 7.7 % (1.7-9.3); NEUTROPHILS # (AUTO) 2.2 K/uL (1.8-7.7); RED BLOOD CELL COUNT(AUTO) 3.69 MIL/uL (4.20-6.10); WHITE BLOOD COUNT (AUTO) 3.3 K/uL (4.8-10.8)
[2018-08-12 00:02] LABS: ANION GAP 10.2 (8-16); CARBON DIOXIDE 28.5 mmol/L (21-32); CREATININE 1.1 mg/dL (0.7-1.3); POTASSIUM 4.7 mmol/L (3.5-5.1)
[2018-08-12 00:10] LABS: ALBUMIN 2.6 g/dL (3.4-5.0); TOTAL BILIRUBIN 1.4 mg/dL (0.0-1.0)
[2018-08-12 00:13] LABS: PLATELET COUNT (AUTO) 53 K/uL (140-450)
[2018-08-12] MEDS ORDERED: KETOROLAC 30 MG/ML VIAL IVP ONE (00:45)
[2018-08-12 01:18] VITALS: BP 133/80
--- NOTE | 2018-08-12 01:18 | NUR ---
Patient discharged with v/s stable. Written and verbal after care instructions given and explained. Patient verbalized understanding. Ambulatory with steady gait. All questions addressed prior to discharge. Advised to follow up with PMD. IV removed, catheter intact and site benign. Applied folded 4x4 gauze and tape to stop bleeding.
== END 2018-08-12 01:18 | disposition home or self-care (01) ==
LOC: MED 21:16
DX: K74.60 Unspecified cirrhosis of liver (principal); K21.9 Gastro-esophageal reflux disease without esophagitis; I10 Essential (primary) hypertension; N28.9 Disorder of kidney and ureter, unspecified; Z79.899 Other long term (current) drug therapy; Z88.6 Allergy status to analgesic agent
CPT/HCPCS: 36415; 71045; 80053; 82140; 83880; 84484; 85025; 85610; 85730; 87040; 93005; 96374; 96375; 99284; J1885; J1940; Q0092

== ENCOUNTER 2018-08-14 02:19 | Emergency (ER) | payer OTHER ==
[~2018-08-14] VITALS: Ht 162.6 cm; Wt 90.7 kg
[2018-08-14 02:25] VITALS: BP 138/77
--- NOTE | 2018-08-14 02:34 | NUR ---
PT AMBULATED TO BED 8
--- NOTE | 2018-08-14 02:45 | NUR ---
PATIENT PRESENTS TO ER WITH C/O ABDOMINAL PAIN X 2 DAYS. PT STATED THAT HE HAS GENERALIZED PAIN ALL OVER THE ABDOMEN REGION. PT STATED THAT HE WAS HERE 2 DAYS AGO IN ER FOR THE SAME COMPLAINT. PT HAS HX OF CIRRHOSIS. PT STATED HE DOES NOT HAVE DIARRHEA BUT TAKES LACTULOSE. PT HAS SOME NAUSEA BUT DENIES VOMITING. PATIENT STATES PAIN OF 8/10 AT THIS TIME; VSS; PATIENT POSITIONED FOR COMFORT; HOB ELEVATED; BEDRAILS UP X2; BED DOWN. ER MD MADE AWARE OF PT STATUS.
[2018-08-14] MEDS ORDERED: DICYCLOMINE HCL LIQUID 20 MG, ALUMINUM HYD/MAG/SIMETHICONE 30 ML, LIDOCAINE VISCOUS 2% ... PO ONE ×3 (03:10)
[2018-08-14] MEDS ORDERED: MORPHINE SULFATE 4 MG/ML SYR IM ONE (03:10)
[2018-08-14] MEDS ORDERED: KETOROLAC 30 MG/ML VIAL IVP ONE (04:10)
--- NOTE | 2018-08-14 04:32 | NUR ---
PT SITTING UP IN BED, COMFORT MEASURES WERE OFFERED, PT TOLERATED WELL. PT HAD SOME PAIN, ER MD MADE AWARE
--- NOTE | 2018-08-14 04:48 | NUR ---
Patient discharged with v/s stable. Written and verbal after care instructions given and explained. Patient alert, oriented and verbalized understanding of instructions. Ambulatory with steady gait. All questions addressed prior to discharge. ID band removed. Patient advised to follow up with PMD. Rx of MAALOX given. Patient educated on indication of medication including possible reaction and side effects. Opportunity to ask questions provided and answered.
[2018-08-14 05:01] VITALS: BP 120/64
== END 2018-08-14 05:01 | disposition home or self-care (01) ==
LOC: MED 02:19
DX: R10.9 Unspecified abdominal pain (principal); K21.9 Gastro-esophageal reflux disease without esophagitis; I10 Essential (primary) hypertension; N28.9 Disorder of kidney and ureter, unspecified; Z79.899 Other long term (current) drug therapy; Z88.6 Allergy status to analgesic agent
CPT/HCPCS: 96372; 96374; 99283; J1885; J2270

== ENCOUNTER 2018-08-18 01:09 | Emergency (ER) | payer OTHER ==
[~2018-08-18] VITALS: Ht 162.6 cm; Wt 94.8 kg
[2018-08-18 01:12] VITALS: BP 128/68
--- NOTE | 2018-08-18 01:20 | NUR ---
PT AMBULATED BACK TO LOBBY, VITALS STABLE
--- NOTE | 2018-08-18 02:23 | NUR ---
PT AMBULATED TO BED #3
[2018-08-18] MEDS ORDERED: MORPHINE SULFATE 4 MG/ML SYR IVP ONE (03:50)
--- NOTE | 2018-08-18 04:00 | NUR ---
IV START: L AC 20G; FLUSHED WELL W/O RESISTANCE, NO REDNESS OR SWELLING NOTED TO SIGHT, TRANSPARENT DRESSING APPLIED. PT TOLERATED WELL.
[2018-08-18 04:20] LABS: BASOPHILS % (AUTO) 0.1 % (0.0-2.0); EOSINOPHILS % (AUTO) 1.1 % (0.0-4.0); HEMATOCRIT 36.4 % (36-52); HEMOGLOBIN 12.1 g/dL (12.0-18.0); LYMPHOCYTES # (AUTO) 0.8 K/uL (2.0-11.5); LYMPHOCYTES % (AUTO) 21.9 % (20.5-51.1); MEAN CORPUSCULAR HEMOGLOBIN 33 pg (27-31); MEAN CORPUSCULAR HGB CONC 33 g/dL (33-37); MEAN CORPUSCULAR VOLUME 98.2 fL (80-94); MONOCYTES # (AUTO) 0.4 K/uL (0.8-1.0); MONOCYTES % (AUTO) 10.3 % (1.7-9.3); NEUTROPHILS # (AUTO) 2.3 K/uL (1.8-7.7); NEUTROPHILS % (AUTO) 66.6 % (42.2-75.2); RED BLOOD CELL COUNT(AUTO) 3.71 MIL/uL (4.20-6.10); WHITE BLOOD COUNT (AUTO) 3.5 K/uL (4.8-10.8)
[2018-08-18 04:21] LABS: APPEARANCE,URINE CLEAR (CLEAR); BILIRUBIN,URINE NEGATIVE (NEGATIVE); BLOOD, URINE TRACE-L (NEGATIVE); COLOR,URINE YELLOW (YELLOW); LEUKOCYTE ESTERASE ,URINE NEGATIVE (NEGATIVE); NITRITE, URINE NEGATIVE (NEGATIVE); PH,URINE 7.5 (5.0-9.0); UGLUCOSE NEGATIVE (NEGATIVE)
[2018-08-18 04:26] LABS: PLATELET COUNT (AUTO) 54 K/uL (140-450)
[2018-08-18 04:42] LABS: ANION GAP 11.1 (8-16); CARBON DIOXIDE 25.1 mmol/L (21-32); CREATININE 0.8 mg/dL (0.7-1.3); POTASSIUM 4.2 mmol/L (3.5-5.1)
--- NOTE | 2018-08-18 04:43 | NUR ---
PT TO CT VIA WHEELCHAIR BY TECH.
[2018-08-18 04:47] LABS: ALBUMIN 2.5 g/dL (3.4-5.0); TOTAL BILIRUBIN 1.4 mg/dL (0.0-1.0)
[2018-08-18 04:51] LABS: RBC,URINE NONE SEEN /HPF (0-5); WBC,URINE 0-5 /HPF (0-5)
--- NOTE | 2018-08-18 04:52 | NUR ---
PT BACK FROM CT; PT IN BED, SAFETY PRECAUTIONS IN PLACE. WILL CONTINUE TO MONITOR.
[2018-08-18 05:52] VITALS: BP 94/67
== END 2018-08-18 05:52 | disposition home or self-care (01) ==
LOC: MED 01:09
DX: K74.60 Unspecified cirrhosis of liver (principal); K21.9 Gastro-esophageal reflux disease without esophagitis; I10 Essential (primary) hypertension; N28.9 Disorder of kidney and ureter, unspecified; Z79.899 Other long term (current) drug therapy; Z88.6 Allergy status to analgesic agent
CPT/HCPCS: 36415; 74176; 80053; 81001; 82140; 82150; 83690; 85025; 96374; 99284; J2270

== ENCOUNTER 2018-08-21 05:42 | Inpatient (IN) | payer OTHER ==
[~2018-08-21] VITALS: Ht 162.6 cm; Wt 90.7 kg
[2018-08-21 05:52] VITALS: BP 136/80
--- NOTE | 2018-08-21 05:52 | NUR ---
TO BED # 11 AMBULATORY
[2018-08-21] MEDS ORDERED: MORPHINE SULFATE 4 MG/ML SYR IVP ONE (06:05)
--- NOTE | 2018-08-21 06:07 | NUR ---
C/O ABD PAIN ON GOING FOR PAST WEEK W/O RELIEF, SMALL AMOUNT OF BRIGHT RED BLOOD REPORTED IN STOOL. W/ N/V. ABD IS ROUND, SOFT, NON TENDER, ACTIVE BS. PT STATES HE WAS SEEN BY PCP AND LABS DRAWN BUT IS STILL HAVING PAIN. HX LIVER CIRRHOSIS
--- NOTE | 2018-08-21 06:07 | NUR ---
DR TAN EVALUATING PT.
[2018-08-21 06:18] LABS: APPEARANCE,URINE CLEAR (CLEAR); BILIRUBIN,URINE NEGATIVE (NEGATIVE); BLOOD, URINE TRACE-L (NEGATIVE); COLOR,URINE YELLOW (YELLOW); LEUKOCYTE ESTERASE ,URINE NEGATIVE (NEGATIVE); NITRITE, URINE NEGATIVE (NEGATIVE); UGLUCOSE TRACE (NEGATIVE)
[2018-08-21 06:30] LABS: BASOPHILS % (AUTO) 0.4 % (0.0-2.0); EOSINOPHILS # (AUTO) 0.1 K/uL (0-0.4); EOSINOPHILS % (AUTO) 1.7 % (0.0-4.0); HEMOGLOBIN 12.3 g/dL (12.0-18.0); LYMPHOCYTES % (AUTO) 26.1 % (20.5-51.1); MEAN CORPUSCULAR HEMOGLOBIN 33 pg (27-31); MEAN CORPUSCULAR HGB CONC 34 g/dL (33-37); MEAN CORPUSCULAR VOLUME 96.9 fL (80-94); MONOCYTES # (AUTO) 0.3 K/uL (0.8-1.0); MONOCYTES % (AUTO) 8.3 % (1.7-9.3); NEUTROPHILS # (AUTO) 2.4 K/uL (1.8-7.7); NEUTROPHILS % (AUTO) 63.5 % (42.2-75.2); PLATELET COUNT (AUTO) 53 K/uL (140-450); RED BLOOD CELL COUNT(AUTO) 3.72 MIL/uL (4.20-6.10); RED CELL DISTRIBUTION WIDTH 14.8 % (11.6-13.7); WHITE BLOOD COUNT (AUTO) 3.8 K/uL (4.8-10.8)
[2018-08-21 06:37] LABS: RBC,URINE 0-5 /HPF (0-5); WBC,URINE 0-5 /HPF (0-5)
[2018-08-21 06:45] LABS: ANION GAP 13.4 (8-16); CARBON DIOXIDE 23.3 mmol/L (21-32); POTASSIUM 3.7 mmol/L (3.5-5.1)
[2018-08-21 06:50] LABS: TOTAL BILIRUBIN 1.4 mg/dL (0.0-1.0)
[2018-08-21 07:04] LABS: ALBUMIN 2.6 g/dL (3.4-5.0)
--- NOTE | 2018-08-21 07:15 | NUR ---
Pt report received from FANNIE Dawn. Transfer of care at this time.
[2018-08-21] MEDS ORDERED: SPIR50TA PO (08:29)
[2018-08-21] MEDS ORDERED: IBUP-2213 PO (08:29)
--- NOTE | 2018-08-21 08:45 | NUR ---
GOT BEDSIDE REPORT FROM FANNIE HEARD. PATIENT FROM ER. PATIENT ON TELE MONITOR AND STANDARD PRECAUTIONS IN PLACE. PATIENT AAOX4 AND ON ROOM AIR, NO DISTRESS NOTED. SKIN INTACT. IV ON L FA 20 G, SALINE LOCK, IV ASYMPTOMATIC PATENT AND INTACT. BED IN LOW POSITION, CALL LIGHT WITHIN REACH, SIDE RAILS X2 UP. BELONGINGS KEPT AT BEDSIDE
--- NOTE | 2018-08-21 08:45 | NUR ---
Patient will be admitted to care of Dr. Sandoval. Admited to Tele. Will go to room 111 B. Belongings list completed. Report to FANNIE Devine.
[2018-08-21 09:35] VITALS: BP 122/71
--- NOTE | 2018-08-21 09:35 | NUR ---
DR. DE LA O AT BEDSIDE
[2018-08-21] MEDS ORDERED: ONDANSETRON 4 MG/2 ML VIAL IVP PRN (09:40)
[2018-08-21] MEDS ORDERED: MORPHINE SULFATE 2 MG/ML SYR IVP PRN (09:40)
[2018-08-21] MEDS ORDERED: PANTOPRAZOLE 40 MG TABEC PO SCH (10:00)
--- NOTE | 2018-08-21 10:44 | NUR ---
ADMINISTERED SCHEDULED MEDS. PATIENT TOLERATED WELL, WILL CONTINUE TO MONITOR
[2018-08-21 12:00] VITALS: BP 117/61
--- NOTE | 2018-08-21 12:10 | NUR ---
PATIENT SLEEPING, ON ROOM AIR, NO DISTRESS NOTED
[2018-08-21] MEDS: METOCLOPRAMIDE 10 MG/2 ML INJ VIAL IVP SCH ×2 (12:26→19:54)
[2018-08-21] MEDS: LACTULOSE 20 GM/30 ML UDC PO SCH ×2 (12:27→16:26)
--- NOTE | 2018-08-21 14:20 | NUR ---
PATIENT SLEEPING, ON ROOM AIR, NO COMPLAINTS AT THIS TIME
[2018-08-21 16:00] VITALS: BP 117/65
--- NOTE | 2018-08-21 16:27 | NUR ---
ADMINISTERED SCHEDULED MEDS. PATIENT TOLERATED WELL
--- NOTE | 2018-08-21 19:05 | NUR ---
GAVE BEDSIDE REPORT TO FANNIE DE LA CRUZ. PATIENT ENDORSED IN STABLE CONDITION
--- NOTE | 2018-08-21 19:10 | NUR ---
RECEIVED BEDSIDE REPORT FROM RN CHAIRAMINE PATIENT IN BED, AAOX4, ABLE TO MAKE NEEDS KNOWN, ABLE TO AMBULATE STEADY GAIT. C/O SEVERE ABDOMINAL PAIN 12/19. WILL MEDICATE ACCORDING TO MD ORDER, IV IN LEFT FA 20 G SL, DRESSING INTACT. EXPLAINED PLAN OF CARE. WILL CONTINUE TO MONITOR
[2018-08-21] MEDS: MORPHINE SULFATE 4 MG/ML SYR IVP PRN (19:55)
--- NOTE | 2018-08-21 19:55 | NUR ---
DUE REGLAN GIVEN, GAVE MORPHINE FOR SEVERE PAIN
[2018-08-21 20:00] VITALS: BP 124/64
--- NOTE | 2018-08-21 21:15 | NUR ---
PATIENT ATE SOUP, TOLERATED WELL
--- NOTE | 2018-08-21 23:57 | NUR ---
V/S TAKEN ALL WITHIN BASELINE WILL CONTINUE TO MONITOR
[2018-08-22 00:32] VITALS: BP 118/70
--- NOTE | 2018-08-22 01:46 | NUR ---
SLEEPING IN BED WILL CONTINUE TO MONITOR
[2018-08-22 04:00] VITALS: BP 101/57
--- NOTE | 2018-08-22 04:15 | NUR ---
DUE REGLAN GIVEN, BP 101/57 HR 66 WILL CONTINUE TO MONITOR
[2018-08-22] MEDS: METOCLOPRAMIDE 10 MG/2 ML INJ VIAL IVP SCH ×2 (04:18→12:13)
--- NOTE | 2018-08-22 07:14 | NUR ---
ENDORSED PATIENT TO DAY SHIFT NURSE, PATIENT STABLE.
--- NOTE | 2018-08-22 07:15 | NUR ---
RECEIVED HAND OFF REPORT FROM NIGHTSHIFT NURSE. PT IS AWAKE AND AMBULATED TO RESTROOM BY HIMSELF. AMBULATES STEADY. PT COMPLAINED OF PAIN AND REQUESTING PAIN MEDICATION AFTER HIS BREAKFAST. BP WAS 110/66 WITHIN RANGE TO ADMINISTER PAIN MEDICATION. PT APPEARS STABLE AND IN NO APPARENT DISTRESS. WILL CONTINUE TO MONITOR.
--- NOTE | 2018-08-22 07:45 | NUR ---
INITIAL ASSESSMENT DONE. PT IS RESTING IN BED. VITAL SIGNS ARE WITHIN NORMAL LIMITS OFFERED PT PAIN MEDICATION BECAUSE GROUP TEACHER WAS NOT ABLE TO ADMINISTER IT BECAUSE HIS BP WAS TO LOW EARLIER. PT SAID HE WOULD LIKE HIS PAIN MEDICATION AFTER BREAKFAST. PT APPEARS STABLE AND IN NO APPARENT DISTRESS. IV IS PATENT AND FLUSHED WITH NO SIGNS OF INFILTRATION. ALL SAFETY MEASURES ARE IN PLACE AND WILL CONTINUE TO MONITOR.
[2018-08-22 08:00] VITALS: BP 110/66
[2018-08-22] MEDS: LACTULOSE 20 GM/30 ML UDC PO SCH ×2 (08:24→12:13)
[2018-08-22] MEDS: MORPHINE SULFATE 4 MG/ML SYR IVP PRN (08:25)
--- NOTE | 2018-08-22 08:25 | NUR ---
PT REQUESTING PAIN MEDICATION. ADMINISTERED 4MG MORPHINE PER ORDERED FOR HIS ABD PAIN 12/19 BP WAS 110/66 AT 0730. ALSO ADMINISTERED ALL HIS MORNING MEDICATIONS, PT TOLERATED ORAL MEDICATIONS WELL. WILL CONTINUE TO MONITOR.
[2018-08-22] MEDS ORDERED: SPIRONOLACTONE 50 MG TAB PO SCH (09:00)
[2018-08-22] MEDS ORDERED: SPIRONOLACTONE 25 MG TAB PO SCH (09:00)
[2018-08-22] MEDS ORDERED: FUROSEMIDE 40 MG TAB PO SCH (09:00)
[2018-08-22] MEDS ORDERED: NADOLOL 20 MG TAB PO SCH (09:00)
[2018-08-22] MEDS ORDERED: PANTOPRAZOLE 40 MG TABEC PO SCH (09:00)
[2018-08-22] MEDS ORDERED: FOLIC ACID 1 MG TAB PO SCH (09:00)
[2018-08-22] MEDS ORDERED: THIAMINE 100 MG TAB PO SCH (09:00)
--- NOTE | 2018-08-22 10:01 | NUR ---
FREQUENT ROUNDING ON PT. PT IS ASLEEP IN BED. NOTABLE CHEST RISE AND FALL. PT APPEARS STABLE AND IN NO APPARENT DISTRESS. WILL CONTINUE TO MONITOR.
--- NOTE | 2018-08-22 11:17 | NUR ---
FREQUENT ROUNDING ON PT PT IS AWAKE IN BED WITH FAMILY IN THE ROOM. PT APPEARS STABLE AND IN NO APPARENT DISTRESS. ALL SAFETY MEASURES IN PLACE. WILL CONTINUE TO MONITOR.
[2018-08-22 12:00] VITALS: BP 115/70
--- NOTE | 2018-08-22 13:20 | NUR ---
FREQUENT ROUNDING ON PT, PT IS AWAKE IN BED. PT STATED HE AMBULATED TO THE RESTROOM AND STARTED TO FEEL RIGHT UPPER QUADRANT PAIN. PT ASKED FOR PAIN MEDICATION. INFORMED THE PT THAT HE CANT HAVE MORPHINE IF HE IS PLANNING ON BEING DISCHARGED. ASKED PT TO REST FOR AWHILE AND SEE HOW THE PAIN IS WHEN HE ISNT AMBULATING.
[2018-08-22 15:12] VITALS: BP 115/70
--- NOTE | 2018-08-22 15:35 | NUR ---
REMOVED PT ARMBANDS AND IV CATH. IV CATH TIP INTACT. PT AMBULATED TO THE FRONT LOBBY. PT HAD A STEADY GAIT. PT APPEARED STABLE AND IN NO APPARENT DISTRESS, PT STATED HE WAS GOING TO MAKE AN APPOINTMENT WITH HIS PRIMARY CARE PROVIDED ON FRIDAY WHEN THEY OPENED. PT LEFT WITH ALL PERSONAL BELONGINGS IN HAND.
--- NOTE | 2018-08-24 09:15 | NUR ---
CALLED DR. GOMEZ'S OFFICE TO MAKE A FOLLOW UP APPOINTMENT. I SPOKE WITH EFREN IN DR. GOMEZ'S OFFICE WHO SAID HE WANTS TO CALL THE PATIENT TO MAKE THE FOLLOW UP APPOINTMENT. PHONE [phone]
--- NOTE | 2018-08-24 12:26 | NUR ---
CALLED DR. GOMEZ'S OFFICE AND SPOKE WITH EFREN. HE SAID HE MADE AN APPOINTMENT FOR THIS PATIENT FOR 08/25/18 AT 11A.M. [address]ESS [address] [place] [address]. PHONE [phone]
== END 2018-08-22 15:40 | disposition home or self-care (01) | DRG 241 ==
LOC: MED 05:42 → MTU 08:29
PROVIDERS: ADMIT Internal Medicine Pulmonary Disease; ATTEND Internal Medicine Pulmonary Disease
DX: K29.70 Gastritis, unspecified, without bleeding (principal); K56.7 Ileus, unspecified; K76.6 Portal hypertension; K70.30 Alcoholic cirrhosis of liver without ascites; I10 Essential (primary) hypertension; K21.9 Gastro-esophageal reflux disease without esophagitis; Z88.6 Allergy status to analgesic agent; Z79.899 Other long term (current) drug therapy
CPT/HCPCS: 36415; 80053; 81001; 82140; 83690; 85025; 85610; 85730; 87081; 96374; 99285; J2270; J2765

== ENCOUNTER 2019-04-07 11:12 | Emergency (ER) | payer OTHER ==
[~2019-04-07] VITALS: Ht 162.6 cm; Wt 82.2 kg
[~2019-04-07 11:12] MED LIST changes: -SPIR25TA PO; +SPIR50TA PO
--- NOTE | 2019-04-07 11:19 | NUR ---
Patient ambulated to bed 3. RN evaluating patient at bedside.
[2019-04-07 11:24] VITALS: BP 165/89
--- NOTE | 2019-04-07 11:27 | NUR ---
38 Y/O M C/O RIGHT TESTICULAR SWELLING AND PAIN 7/10 WITH WALKING. PATIENT STATES HE HAS A RIGHT INGUINAL HERNIA. PATIENT ABLE TO URINATE, NO N/V FEVER. HX: UMBILICAL HERNIA REPAIR, CIRRHOSIS, NKA
--- NOTE | 2019-04-07 11:31 | NUR ---
REPORT GIVEN TO FANNIE HAND
--- NOTE | 2019-04-07 12:23 | NUR ---
Dr. Sanford is evaluating the patient at bedside.
[2019-04-07] MEDS ORDERED: KETOROLAC 30 MG/ML VIAL IM ONE (12:25)
[2019-04-07 12:47] VITALS: BP 165/89
--- NOTE | 2019-04-07 12:48 | NUR ---
Patient discharged with v/s stable. Written and verbal after care instructions given and explained. Patient alert, oriented and verbalized understanding of instructions. Ambulatory with steady gait. All questions addressed prior to discharge. ID band removed. Patient advised to follow up with PMD. Rx of IBPROFEN given. Patient educated on indication of medication including possible reaction and side effects. Opportunity to ask questions provided and answered.
== END 2019-04-07 12:48 | disposition home or self-care (01) ==
LOC: MED 11:12
DX: K40.90 Unilateral inguinal hernia, without obstruction or gangrene, not specified as recurrent (principal); Z98.890 Other specified postprocedural states
CPT/HCPCS: 96372; 99283; J1885

== ENCOUNTER 2021-06-22 08:27 | Day surgery (SDC) | payer OTHER, SELFPAY ==
[~2021-06-22] VITALS: Ht 167.6 cm; Wt 80.7 kg
[2021-06-22] MEDS ORDERED: fentaNYL citrate 0.05 MG/ML VIAL ONE (10:51)
[2021-06-22] MEDS ORDERED: MIDAZOLAM 5 MG/5 ML VIAL ONE (10:51)
[2021-06-22] MEDS ORDERED: MIDAZOLAM 2 MG/2 ML VIAL IVP ONE (14:00)
== END 2021-06-22 11:55 | disposition home or self-care (01) ==
LOC: MMU 08:27 → MDS 08:27
PROVIDERS: ATTEND Internal Medicine Gastroenterology
DX: K74.69 Other cirrhosis of liver (principal); Z79.82 Long term (current) use of aspirin; Z79.899 Other long term (current) drug therapy; Z20.822 Contact with and (suspected) exposure to COVID-19
CPT/HCPCS: 43235; 87426; J2250; J3010

== ENCOUNTER 2022-09-20 08:47 | Day surgery (SDC) | payer OTHER ==
[~2022-09-20] VITALS: Ht 162.6 cm; Wt 81.2 kg
[2022-09-20] MEDS ORDERED: fentaNYL citrate 0.05 MG/ML VIAL ONE (09:49)
[2022-09-20] MEDS ORDERED: MIDAZOLAM 2 MG/2 ML VIAL ONE (09:50)
[2022-09-20] MEDS ORDERED: MIDAZOLAM 2 MG/2 ML VIAL IVP ONE (11:55)
== END 2022-09-20 10:58 | disposition home or self-care (01) ==
LOC: MMU 08:47 → MDS 08:47
PROVIDERS: ATTEND Internal Medicine Gastroenterology
DX: K70.30 Alcoholic cirrhosis of liver without ascites (principal); K31.89 Other diseases of stomach and duodenum; K21.9 Gastro-esophageal reflux disease without esophagitis; Z98.890 Other specified postprocedural states; Z95.0 Presence of cardiac pacemaker; Z88.6 Allergy status to analgesic agent; Z79.899 Other long term (current) drug therapy
CPT/HCPCS: 43235; J2250; J3010

== ENCOUNTER 2022-11-20 09:33 | Emergency (ER) | payer OTHER ==
[~2022-11-20] VITALS: Ht 162.6 cm; Wt 72.6 kg
[2022-11-20 09:47] VITALS: BP 122/70; PULSE 84; RESP 18; TEMP 97; O2SAT 98
--- NOTE | 2022-11-20 09:50 | NUR ---
PT AMBULATED TO BED 12
--- NOTE | 2022-11-20 10:15 | NUR ---
ASSESSING PT AT BEDSIDE
[2022-11-20] MEDS ORDERED: KETOROLAC 30 MG/ML VIAL IM ONE (10:20)
[2022-11-20] MEDS ORDERED: IBUP-1842 PO (10:20)
--- NOTE | 2022-11-20 10:25 | NUR ---
PT MEDICATED PER MD ORDERS. NADR. VERBALIZED ALLERGIES PRIOR TO ADMINISTRATION OF MEDICATIONS.
--- NOTE | 2022-11-20 10:25 | NUR ---
sling applied to l arm. + cms.
[2022-11-20 10:40] VITALS: BP 122/70; PULSE 84; RESP 18; TEMP 97; O2SAT 98
== END 2022-11-20 10:40 | disposition home or self-care (01) ==
LOC: MED 09:33
DX: S46.122A Laceration of muscle, fascia and tendon of long head of biceps, left arm, initial encounter (principal); K21.9 Gastro-esophageal reflux disease without esophagitis; I12.9 Hypertensive chronic kidney disease with stage 1 through stage 4 chronic kidney disease, or unspecified chronic kidney disease; N18.9 Chronic kidney disease, unspecified; Z79.899 Other long term (current) drug therapy; Z88.5 Allergy status to narcotic agent; X58.XXXA Exposure to other specified factors, initial encounter; Y93.89 Activity, other specified; Y92.89 Other specified places as the place of occurrence of the external cause; Y99.8 Other external cause status
CPT/HCPCS: 96372; 99283; J1885

== ENCOUNTER 2022-12-26 20:34 | Emergency (ER) | payer OTHER ==
[~2022-12-26] VITALS: Ht 172.7 cm; Wt 81.6 kg
[~2022-12-26 20:34] MED LIST changes: +IBUP-1842 PO
[2022-12-26 21:31] VITALS: BP 126/69; PULSE 76; RESP 16; TEMP 97.7; O2SAT 98
[2022-12-26 22:56] VITALS: BP 126/69; PULSE 76; RESP 16; TEMP 97.7; O2SAT 98
[2022-12-27] MEDS ORDERED: LACT10SO11 PO (10:14)
== END 2022-12-26 22:00 | disposition left against medical advice (07) ==
LOC: MED 20:34
DX: K59.00 Constipation, unspecified (principal); Z53.21 Procedure and treatment not carried out due to patient leaving prior to being seen by health care provider
CPT/HCPCS: 99281

== ENCOUNTER 2023-01-16 07:58 | Emergency (ER) | payer OTHER ==
[~2023-01-16] VITALS: Ht 165.1 cm; Wt 72.6 kg
[2023-01-16 08:03] VITALS: BP 123/61; PULSE 82; RESP 18; TEMP 98; O2SAT 98
[2023-01-16] MEDS ORDERED: BACITRACIN OINT 500 UNITS/GM PKT TP ONE (08:50)
[2023-01-16] MEDS ORDERED: IBUP-1842 PO (09:14)
[2023-01-16 10:10] VITALS: BP 124/59; PULSE 79; RESP 20; TEMP 98.1; O2SAT 98
== END 2023-01-16 10:00 | disposition home or self-care (01) ==
LOC: MED 07:58
DX: S61.411A Laceration without foreign body of right hand, initial encounter (principal); I10 Essential (primary) hypertension; K21.9 Gastro-esophageal reflux disease without esophagitis; Z88.6 Allergy status to analgesic agent; Z79.899 Other long term (current) drug therapy; W25.XXXA Contact with sharp glass, initial encounter; Y93.89 Activity, other specified; Y92.89 Other specified places as the place of occurrence of the external cause; Y99.8 Other external cause status
CPT/HCPCS: 90471; 90715; 99283

== ENCOUNTER 2023-01-17 13:10 | Emergency (ER) | payer OTHER ==
[~2023-01-17] VITALS: Ht 162.6 cm; Wt 81.7 kg
[2023-01-17 13:30] VITALS: BP 128/69; PULSE 68; RESP 20; TEMP 98.4; O2SAT 98
== END 2023-01-17 14:43 | disposition home or self-care (01) ==
LOC: MED 13:10
DX: S61.001A Unspecified open wound of right thumb without damage to nail, initial encounter (principal); K21.9 Gastro-esophageal reflux disease without esophagitis; I10 Essential (primary) hypertension; Z88.6 Allergy status to analgesic agent; Z79.899 Other long term (current) drug therapy; X58.XXXA Exposure to other specified factors, initial encounter; Y93.89 Activity, other specified; Y92.89 Other specified places as the place of occurrence of the external cause; Y99.8 Other external cause status
CPT/HCPCS: 99283

== ENCOUNTER 2023-01-23 16:43 | Emergency (ER) | payer OTHER ==
[~2023-01-23] VITALS: Ht 162.6 cm; Wt 81.6 kg
[2023-01-23 17:14] VITALS: BP 122/66; PULSE 86; RESP 18; TEMP 98; O2SAT 98
[2023-01-23 18:19] VITALS: BP 120/65; PULSE 82; RESP 18; TEMP 98; O2SAT 99
== END 2023-01-23 18:19 | disposition home or self-care (01) ==
LOC: MED 16:43
DX: S61.011D Laceration without foreign body of right thumb without damage to nail, subsequent encounter (principal); Z48.02 Encounter for removal of sutures; K21.9 Gastro-esophageal reflux disease without esophagitis; I10 Essential (primary) hypertension; Z87.448 Personal history of other diseases of urinary system; Z79.899 Other long term (current) drug therapy; Z79.1 Long term (current) use of non-steroidal anti-inflammatories (NSAID); Z88.8 Allergy status to other drugs, medicaments and biological substances; X58.XXXD Exposure to other specified factors, subsequent encounter
CPT/HCPCS: 99283

== ENCOUNTER 2023-05-02 08:25 | Emergency (ER) | payer OTHER ==
[~2023-05-02] VITALS: Ht 162.6 cm; Wt 82.1 kg
[2023-05-02 08:43] VITALS: BP 112/65; PULSE 76; RESP 14; TEMP 98.3; O2SAT 99
[2023-05-02] MEDS ORDERED: LACT-58 PO (09:02)
[2023-05-02] MEDS ORDERED: POLYETHYLENE GLYCOL 17 GM/PKT PO ONE (09:15)
[2023-05-02] MEDS ORDERED: LACTULOSE 20 GM/30 ML UDC PO ONE (09:15)
[2023-05-02 09:38] VITALS: BP 120/80; PULSE 76; RESP 14; TEMP 98.3; O2SAT 99
== END 2023-05-02 09:38 | disposition home or self-care (01) ==
LOC: MED 08:25
DX: K59.00 Constipation, unspecified (principal); K74.60 Unspecified cirrhosis of liver; K21.9 Gastro-esophageal reflux disease without esophagitis; I12.9 Hypertensive chronic kidney disease with stage 1 through stage 4 chronic kidney disease, or unspecified chronic kidney disease; N18.9 Chronic kidney disease, unspecified; Z79.899 Other long term (current) drug therapy
CPT/HCPCS: 99283

== ENCOUNTER 2023-09-16 16:08 | Emergency (ER) | payer OTHER ==
[~2023-09-16] VITALS: Ht 162.6 cm; Wt 81.6 kg
[~2023-09-16 16:08] MED LIST changes: +LACT-58 PO
[2023-09-16 16:53] VITALS: BP 108/71; PULSE 78; RESP 18; TEMP 98.6; O2SAT 98
[2023-09-16] MEDS: KETOROLAC 30 MG/ML VIAL IM ONE (17:42)
[2023-09-16 17:50] LABS: BASOPHILS % (AUTO) 0.5 % (0.0-2.0); EOSINOPHILS # (AUTO) 0.1 K/uL (0-0.4); EOSINOPHILS % (AUTO) 1.5 % (0.0-4.0); HEMATOCRIT 34.7 % (36-52); HEMOGLOBIN 11.8 g/dL (12.0-18.0); LYMPHOCYTES # (AUTO) 1.2 K/uL (2.0-11.5); LYMPHOCYTES % (AUTO) 31.1 % (20.5-51.1); MEAN CORPUSCULAR HEMOGLOBIN 33 pg (27-31); MEAN CORPUSCULAR HGB CONC 34 g/dL (33-37); MEAN CORPUSCULAR VOLUME 98.3 fL (80-94); MONOCYTES # (AUTO) 0.3 K/uL (0.8-1.0); MONOCYTES % (AUTO) 7.7 % (1.7-9.3); NEUTROPHILS # (AUTO) 2.2 K/uL (1.8-7.7); NEUTROPHILS % (AUTO) 59.2 % (42.2-75.2); PLATELET COUNT (AUTO) 59 K/uL (140-450); RED BLOOD CELL COUNT(AUTO) 3.53 MIL/uL (4.20-6.10); RED CELL DISTRIBUTION WIDTH 15.7 % (11.6-13.7); WHITE BLOOD COUNT (AUTO) 3.8 K/uL (4.8-10.8)
[2023-09-16 18:07] LABS: APPEARANCE,URINE CLEAR (CLEAR); BILIRUBIN,URINE NEGATIVE (NEGATIVE); BLOOD, URINE NEGATIVE (NEGATIVE); COLOR,URINE YELLOW (YELLOW); LEUKOCYTE ESTERASE ,URINE NEGATIVE (NEGATIVE); NITRITE, URINE NEGATIVE (NEGATIVE); PROTEIN,URINE NEGATIVE (NEGATIVE); UGLUCOSE NEGATIVE (NEGATIVE)
[2023-09-16 18:12] LABS: ANION GAP 6.3 (8-16); CALCIUM 8.2 mg/dL (8.5-10.1); CARBON DIOXIDE 30.9 mmol/L (21-32); CREATININE 0.6 mg/dL (0.6-1.3); POTASSIUM 4.2 mmol/L (3.5-5.1)
[2023-09-16 18:18] LABS: ALBUMIN 2.9 g/dL (3.4-5.0); BILIRUBIN,DIRECT 0.5 mg/dL (0.0-0.3); TOTAL BILIRUBIN 1.7 mg/dL (0.0-1.0)
[2023-09-16 20:09] VITALS: O2SAT 98
[2023-09-16] MEDS ORDERED: DICL20GE TP ×2 (22:02→23:24)
[2023-09-16] MEDS ORDERED: NAPR-337 PO ×2 (22:02→23:24)
[2023-09-16] MEDS ORDERED: KETOROLAC 30 MG/ML VIAL IM ONE (22:05)
[2023-09-16] MEDS: LIDOCAINE 5% 1 EA PATCH TP ONE (22:09)
[2023-09-16] MEDS: KETOROLAC 30 MG/ML VIAL IVP ONE (22:18)
[2023-09-16 23:16] VITALS: BP 121/65; PULSE 63; RESP 18; TEMP 97.9; O2SAT 98
== END 2023-09-16 23:16 | disposition home or self-care (01) ==
LOC: MED 16:08
DX: R10.9 Unspecified abdominal pain (principal); I10 Essential (primary) hypertension; K21.9 Gastro-esophageal reflux disease without esophagitis; N28.9 Disorder of kidney and ureter, unspecified; Z88.5 Allergy status to narcotic agent; Z79.899 Other long term (current) drug therapy
CPT/HCPCS: 36415; 74176; 80048; 80076; 81003; 83690; 85025; 96372; 96374; 99285; J1885

== ENCOUNTER 2023-12-10 07:51 | Day surgery (SDC) | payer OTHER ==
[~2023-12-10] VITALS: Ht 162.6 cm; Wt 78.0 kg
[~2023-12-10 07:51] MED LIST changes: +DICL20GE TP; +NAPR-337 PO
[2023-12-10] MEDS ORDERED: fentaNYL citrate 0.05 MG/ML VIAL ONE (08:37)
[2023-12-10] MEDS ORDERED: MIDAZOLAM 5 MG/5 ML VIAL ONE (08:38)
[2023-12-10] MEDS: MIDAZOLAM 2 MG/2 ML VIAL IVP ONE (08:56)
== END 2023-12-10 09:46 | disposition home or self-care (01) ==
LOC: MDS 07:51 → MMU 07:54 → MDS 09:46
PROVIDERS: ATTEND Internal Medicine Gastroenterology
DX: K70.30 Alcoholic cirrhosis of liver without ascites (principal); I10 Essential (primary) hypertension; K21.9 Gastro-esophageal reflux disease without esophagitis; Z88.6 Allergy status to analgesic agent; Z98.890 Other specified postprocedural states
CPT/HCPCS: 43235; J2250; J3010